=== PATIENT | male | born 1950 | race Caucasian/White ===

== ENCOUNTER 2018-10-11 22:20 | Emergency (ER) | payer OTHER, SELFPAY ==
--- NOTE | 2018-10-11 22:23 | ED.ABDPAIN ---
HPI - Abdominal Pain General Chief Complaint: Urogenital-Male Stated Complaint: ABD PAIN AND TOWARDS BACK Time Seen by Provider: 10/11/18 22:22 Source: patient Mode of arrival: ambulatory Limitations: no limitations History of Present Illness HPI narrative: Patient is a 68-year-old male here for evaluation of several hours of pain that is radiating from his right flank around to his abdomen. He states that he has had a kidney stone in the past but that was many years ago. He thought that potentially this could be a kidney stone again. No fevers. States that the symptoms were not worse with movement or palpation. Denies any urinary symptoms or change in bowel habits. Has not tried anything for the symptoms prior to arrival. Related Data Home Medications Medication Instructions Recorded Confirmed ASPIRIN (Aspirin Ec) 81 mg PO Q DAY #0 11/04/05 MULTIVITAMIN (Multivitamin 0 PO * [place] DOSE/FREQUENCY #0 02/05/07 -) RAMIPRIL (Altace) 10 mg PO #0 02/05/07 [FISH OIL] #0 02/05/07 rosuvastatin [Crestor] #0 10/17/16 Allergies Allergy/AdvReac Type Severity Reaction Status Date / Time No Known Drug Allergies Allergy Verified 10/11/18 22:26 Review of Systems Constitutional Denies fever(s) and Denies headache(s) ENT Ears, Nose, Mouth, and Throat: Denies headache(s) Cardiovascular Denies chest pain and Denies dyspnea Respiratory Denies cough and Denies dyspnea Gastrointestinal Gastrointestinal: Reports abdominal pain, Denies change in stool character, Reports nausea and Denies vomiting Genitourinary Denies hematuria, Denies genital pain and Denies dysuria Musculoskeletal Reports back pain, Denies myalgias and Denies arthralgias Integumentary/Breasts Denies lesions and Denies rash Neurologic Denies behavioral changes and Denies headache(s) Psychiatric Denies behavioral changes Hematologic/Lymphatic Denies easy bleeding and Denies easy bruising [facility] Medical History Kidney stones (Acute) Social History Smoking Status: Unknown if ever smoked Social History Smoking Status: Unknown if ever smoked Exam Initial Vital Signs Initial Vital Signs: Vital Signs Temperature 98.2 F 10/11/18 22:26 Pulse Rate 77 10/11/18 22:26 Respiratory Rate 16 10/11/18 22:26 Blood Pressure 162/91 H 10/11/18 22:26 Pulse Oximetry 97 10/11/18 22:26 Const General: cooperative, well developed and well groomed Orientation: alert, awake and oriented x3 HENMT Head: normal to inspection and normocephalic Chest Chest: normal inspection of the chest Breast inspection: normal inspection of the breasts Resp Effort & Inspection: normal respiratory effort Auscultation: clear to auscultation bilaterally Cardio Rate: regular rate Rhythm: regular rhythm Pulses: radial pulses present GI Inspection: non-distended Palpation: soft, No firm and No tender Back/Spine/Pelvis Back: No CVA tenderness Skin Lesions: no lesions Rashes: no rashes Neuro General: alert and awake Cognition: normal cognition Speech: speech normal Extrem General: normal to inspection and capillary refill normal Course Orders Ordered: ED Orders 10/11/18 22:53 Basic Metabolic Panel Stat Complete Blood Count AUTO DIFF Stat 10/11/18 22:57 CT kidney ureter bladder (KUB) Stat 10/12/18 00:35 XR chest 1V Stat Hepatic (Liver) Panel Stat Lipase Stat Troponin I Stat EKG-12 Lead Stat Discontinued Medications Hydrocodone Bitart/Acetaminophen (Vicodin Prepack) 1 bottle MISC SEEINSTR ONE Stop: 10/12/18 01:44 Lidocaine HCl 7.1 ml/ Sodium (Chloride) 57.1 mls @ 342.6 mls/hr IV NOW ONE Stop: 10/11/18 22:33 Last Infusion: 10/11/18 23:31 Dose: 0 mls/hr Admin: 10/11/18 22:59 Dose: 342.6 mls/hr Ketorolac Tromethamine (Toradol) 15 mg IV NOW ONE Stop: 10/11/18 22:33 Last Admin: 10/11/18 22:58 Dose: 15 mg Morphine Sulfate (Morphine) 4 mg IV NOW ONE Stop: 10/12/18 00:35 Last Admin: 10/12/18 00:55 Dose: 4 mg Ondansetron HCl (Zofran Odt Prepack) 1 bottle MISC SEEINSTR ONE Stop: 10/12/18 01:44 Vital Signs - 8 hr 10/11/18 22:26 10/12/18 00:26 Temperature 98.2 F Pulse Rate 77 61 Respiratory Rate 16 16 Blood Pressure 162/91 H Blood Pressure [Left Arm] 139/86 Pulse Oximetry 97 98 MDM - Abdominal Pain Lab Data Attestation: I reviewed the patient's lab results. Result diagrams: 10/11/18 22:53 10/11/18 22:53 Lab Results 10/11/18 10/11/18 10/12/18 Range/Units 22:53 22:53 00:35 WBC 6.1 (4.5-11.0) X10^3/uL RBC 4.64 (4.5-5.9) X10^6/uL Hgb 14.9 (13.5-17.5) g/dL Hct 41.9 (41-53) % MCV 90.3 (80-100) fL MCH 32.0 (26-34) PG MCHC 35.4 (30-36) % RDW 12.9 (11.6-14.8) % Plt Count 205 (150-400) X10^3/uL Neut % (Auto) 38.5 L (50-75) % Lymph % (Auto) 36.9 (25-40) % [place] % (Auto) 17.9 H (3-14) % Eos % (Auto) 5.2 H (2-4) % Baso % (Auto) 1.5 (0-2) % Neut # (Auto) 2400 (7687-2204) /uL Lymph # (Auto) 2300 (3609-5325) /uL [place] # (Auto) 1100 H (0-900) /uL Eos # (Auto) 300 (0-450) /uL Baso # (Auto) 100 (0-100) /uL Sodium 134 L (137-145) mmol/L Potassium 4.2 (3.4-5.1) mmol/L Chloride 98 (98-107) mmol/L Carbon Dioxide 27 (22-32) mmol/L BUN 18 (9-20) mg/dL Creatinine 1.00 (0.66-1.25) mg/dL Estimated GFR > 60.0 (>60) mL/min BUN/Creatinine Ratio 18.0 (6-22) Glucose 110 (80-110) mg/dL Calcium 9.5 (8.4-10.2) mg/dL Total Bilirubin (0.2-1.3) mg/dL Conjugated Bilirubin (0.0-0.3) md/dL Unconjugated Bilirubin (0.0-1.1) mg/dL AST (17-59) IU/L ALT (21-72) IU/L Alkaline Phosphatase (38-126) U/L Troponin I < 0.012 (0.01-0.034) ng/mL Total Protein (6.3-8.2) g/dL Albumin (3.5-5.0) g/dL Globulin (1.7-4.1) g/dL Albumin/Globulin Ratio (1.0-2.8) Lipase (23-300) U/L 10/12/18 Range/Units 00:35 WBC (4.5-11.0) X10^3/uL RBC (4.5-5.9) X10^6/uL Hgb (13.5-17.5) g/dL Hct (41-53) % MCV (80-100) fL MCH (26-34) PG MCHC (30-36) % RDW (11.6-14.8) % Plt Count (150-400) X10^3/uL Neut % (Auto) (50-75) % Lymph % (Auto) (25-40) % [place] % (Auto) (3-14) % Eos % (Auto) (2-4) % Baso % (Auto) (0-2) % Neut # (Auto) (7433-3906) /uL Lymph # (Auto) (1282-7272) /uL [place] # (Auto) (0-900) /uL Eos # (Auto) (0-450) /uL Baso # (Auto) (0-100) /uL Sodium (137-145) mmol/L Potassium (3.4-5.1) mmol/L Chloride (98-107) mmol/L Carbon Dioxide (22-32) mmol/L BUN (9-20) mg/dL Creatinine (0.66-1.25) mg/dL Estimated GFR (>60) mL/min BUN/Creatinine Ratio (6-22) Glucose (80-110) mg/dL Calcium (8.4-10.2) mg/dL Total Bilirubin 0.6 (0.2-1.3) mg/dL Conjugated Bilirubin 0.0 (0.0-0.3) md/dL Unconjugated Bilirubin 0.4 (0.0-1.1) mg/dL AST 26 (17-59) IU/L ALT 26 (21-72) IU/L Alkaline Phosphatase 34 L (38-126) U/L Troponin I (0.01-0.034) ng/mL Total Protein 6.9 (6.3-8.2) g/dL Albumin 4.2 (3.5-5.0) g/dL Globulin 2.7 (1.7-4.1) g/dL Albumin/Globulin Ratio 1.6 (1.0-2.8) Lipase 65 (23-300) U/L Point of care testing: Urine Dip Bedside Urine Glucose Negative Bedside Urine Bilirubin - Negative Bedside Urine Ketone - Negative Urine Specific [place] 1.015 Bedside Urine Occult Blood - Negative Bedside Urine pH 6.0 Bedside Urine Protein - Negative Bedside Urine Urobilinogen - Negative Bedside Urine Nitrite - Negative Bedside Urine Leukocytes - Negative Esterase Imaging Data CT scan - abdomen: Radiologist's impression: Preliminary read by [facility] No acute disease in the abdomen/pelvis No evidence of bowel obstruction or free air. Normal appendix No renal calculi or hydronephrosis bilaterally Chest x-ray: Radiologist's impression: Preliminary read by [facility] Scattered atelectatic/fibrotic change bilaterally. No focal infiltrate or pleural effusion ECG Data Attestation: I personally reviewed and interpreted this ECG as follows: Prior ECG tracings: not available for review Interpretation: Sinus rhythm Ventricular rate is 65 Normal axis Normal QRS Normal QTC No ST T wave changes MDM Narrative Medical decision making narrative: Initial presentation the patient was concern for kidney stone. He stated that he has had a kidney stone in the past and this felt very similar to that. His urine had no blood in it. There is no signs of infection. The CT scan without contrast showed no signs of a kidney stone and no other intra-abdominal pathology. His initial dose of medications did help his symptoms to a point but then they returned. He did describe a ?bloating? sensation in his abdomen. He stated that when his was rubbing his back he did belch a couple times in this potentially helped his symptoms somewhat. Given the lack of definitive findings on the initial presumed diagnosis other labs were ordered. His chest x-ray was unremarkable. His troponin was negative. His EKG was unremarkable. His lipase is unremarkable. Liver function tests are unremarkable. I have low suspicion for pancreatitis and gallbladder etiology. I also have low suspicion for ACS given his presenting symptoms and his EKG. His symptoms are not consistent with thoracic aortic dissection. The CT scan despite the lack of contrast stated that there were no dilations in his abdominal aorta. Had a discussion with the patient regarding his symptoms. He was informed the lack of definitive diagnosis. He expressed understanding of this. Prior to discharge I did go back in and informed the patient that another test we could potentially do a be a CT scan with contrast to evaluate for potential renal artery issues versus mesenteric issues. He does have a fairly benign abdominal exam and I feel that mesenteric ischemia is unlikely given his clinical presentation. After this discussion the patient opted not to have another CT scan on this visit however if the patient returns with continued symptoms or worsening symptoms I would recommend CT scan with contrast for further evaluation of this. Patient expressed understanding and agreement with the above plan. Will send home with symptom treatment. He will contact his primary provider for follow-up. He expressed understanding agreement plan. Discharge Plan Departure Patient Disposition: Home Clinical Impression: Abdominal pain Qualifiers: Abdominal location: upper abdomen, unspecified Qualified Code(s): R10.10 - Upper abdominal pain, unspecified Back pain Qualifiers: Back pain location: thoracic back pain Chronicity: unspecified Back pain laterality: unspecified Qualified Code(s): M54.6 - Pain in thoracic spine Instructions: DI for Abdominal Pain-Adult Activity Restrictions/Additional Instructions: You can take the medications as directed. Continue the rest of your medications as directed. If your symptoms worsen or you develop new symptoms or fevers please return to the emergency department for further evaluation. Contact your primary care provider to discuss follow-up and potential referral to see a GI specialist. Prescriptions: No Action ASPIRIN (Aspirin Ec) 81 mg PO Q DAY Qty: 0 RF: 0 RAMIPRIL (Altace) 10 mg PO Qty: 0 RF: 0 [FISH OIL] Qty: 0 RF: 0 MULTIVITAMIN (Multivitamin -) PO * DOSE/FREQUENCY Qty: 0 RF: 0 rosuvastatin [Crestor] 10 MG tablet Qty: 0 RF: 0 Referrals: Ari Correa MD [Primary Care Provider] -
[2018-10-11 22:26] VITALS: BP 162/91; PULSE 77; RESP 16; TEMP 36.8; O2SAT 97; BMI 28.5
--- NOTE | 2018-10-11 22:57 | DI.CT.S_ITS ---
PROCEDURE: CT KIDNEY URETER BLADDER (KUB) INDICATIONS: Right-sided flank pain concern for stone TECHNIQUE: Noncontrast 5 mm thick sections acquired from the diaphragms to the symphysis. 5 mm thick coronal and sagittal reformats were then performed. For radiation dose reduction, the following was used: automated exposure control, adjustment of mA and/or kV according to patient size. COMPARISON: None. FINDINGS: Image quality: Excellent. Lung bases: Lung bases are clear. Heart size is normal. Urinary system: Both kidneys are normal in size. No kidney stones. No hydronephrosis or perinephric fat stranding. Both ureters appear non-dilated throughout their expected courses. Mild wall thickening of the urinary bladder is present, which may be exaggerated by incomplete distention. No bladder calculi are evident. The prostate is mildly enlarged and noted to be moderately heterogeneous, containing coarse calcifications. The prostate gland measures at least 5.0 x 4.8 cm. Other solid organs: The liver is normal in size. The gallbladder is not dilated or inflamed. No intrahepatic or extrahepatic biliary dilatation is evident. Heterogeneity of the spleen is present without a definite lesion appreciated. The pancreas and adrenals are within normal limits. Peritoneum and bowel: There is a small hiatal hernia. The stomach is otherwise grossly unremarkable. The duodenum and remainder of the small bowel loops are nondilated. Moderate residual stool is seen within the proximal colon. Areas of distal colonic diverticulosis are identified without surrounding inflammation to suggest diverticulitis. The appendix is not clearly seen. Nodes and vessels: No retroperitoneal or mesenteric adenopathy by size criteria. Aorta and inferior vena cava are normal in caliber. Aortic and iliac artery atherosclerosis is present. Other pelvic soft tissues: No free pelvic fluid. There is a small to moderate-sized fat containing right inguinal hernia. There may be postoperative changes of the left inguinal region. No loculated fluid collections or pelvic adenopathy is evident. Prominent vessels are identified adjacent to the prostate gland. Bones: No suspicious bony lesions. No vertebral body compression fractures. Mild to moderate degenerative changes of the imaged spine and pelvic joints are present. IMPRESSION: 1. No nephroureterolithiasis or hydronephrosis. 2. Mild prominence of the wall of the urinary bladder probably is related to incomplete distention. Please correlate clinically to exclude cystitis. 3. Mildly enlarged prostate. 4. No bowel obstruction. Probable constipation. 5. Colonic diverticulosis without diverticulitis. 6. Small hiatal hernia. 7. Small to moderate-sized fat containing right inguinal hernia. Note: The preliminary [facility] report and the final report are concordant. Dictated by: Mervin Sol M.D. on 10/12/2018 at 6:55 Approved by: Mervin Sol M.D. on 10/12/2018 at 7:00
--- NOTE | 2018-10-11 22:57 | PC.NURSE ---
Patient reports sudden onset of Flank pain and upper abd pain. patient very restless, reports some nausea. States feels similar but more intense than last kidney stones. Denies fevers or chills.
[2018-10-11] MEDS: KETOROLAC 60 MG/2 ML VIAL 15 MG IV (22:58)
[2018-10-11] MEDS: LIDOCAINE 2% 7.1 ML in SODIUM CHLORIDE 0.9% 50 ML 342.6 ML IV (22:59)
[2018-10-11 23:02] LABS: Add Manual Diff / Slide Review NO; Basophils Absolute Auto 100 /uL (0-100); Basophils Percent Auto 1.5 % (0-2); Eosinophils Absolute Auto 300 /uL (0-450); Eosinophils Percent Auto 5.2 % (2-4); Hematocrit 41.9 % (41-53); Hemoglobin 14.9 g/dL (13.5-17.5); Lymphocytes Absolute Auto 2300 /uL (1100-4500); Lymphocytes Percent Auto 36.9 % (25-40); Mean Corpuscular HGB Conc 35.4 % (30-36); Mean Corpuscular Volume 90.3 fL (80-100); Monocytes Absolute Auto 1100 /uL (0-900); Monocytes Percent Auto 17.9 % (3-14); Neutrophils Absolute Auto 2400 /uL (1500-7000); Neutrophils Percent Auto 38.5 % (50-75); Platelet Count 205 X10^3/uL (150-400); Red Blood Cell Count 4.64 X10^6/uL (4.5-5.9); Red Cell Distribution Width 12.9 % (11.6-14.8); White Blood Cell Count 6.1 X10^3/uL (4.5-11.0)
[2018-10-11 23:11] LABS: Blood Urea Nitrogen 18 mg/dL (9-20); Calcium 9.5 mg/dL (8.4-10.2); Carbon Dioxide 27 mmol/L (22-32); Chloride 98 mmol/L (98-107); Estimated Glomerular Filt Rate > 60.0 mL/min (>60); Glucose 110 mg/dL (80-110); HEMOLYSIS 21 (0-50); Potassium 4.2 mmol/L (3.4-5.1); Sodium 134 mmol/L (137-145)
[2018-10-12 00:26] VITALS: BP 139/86; PULSE 61; RESP 16; O2SAT 98
--- NOTE | 2018-10-12 00:35 | DI.RAD.S_ITS ---
PROCEDURE: XR CHEST 1V INDICATIONS: Upper abdominal pain TECHNIQUE: One view of the chest was acquired. COMPARISON: [facility], , CHEST 1 VIEW, 02/05/2007, 7:11. FINDINGS: Surgical changes and devices: None. Lungs and pleura: Prominent interstitial markings are identified within the perihilar regions. The pulmonary vascular markings are mildly increased. No effusion or pneumothorax is evident. Mediastinum: Mediastinal contours appear normal. Heart size is prominent. Bones and chest wall: No suspicious bony lesions. Overlying soft tissues appear unremarkable. IMPRESSION: Cardiomegaly and moderate vascular congestion is concerning for developing pulmonary edema. Atypical pneumonia is felt to be unlikely. Please correlate clinically. Dictated by: Mervin Sol M.D. on 10/12/2018 at 6:40 Approved by: Mervin Sol M.D. on 10/12/2018 at 6:41
[2018-10-12] MEDS: MORPHINE 4 MG/ML INJ IV (00:55)
[2018-10-12 01:11] LABS: Alanine Aminotransferase 26 IU/L (21-72); Albumin 4.2 g/dL (3.5-5.0); Albumin Globulin Ratio 1.6 (1.0-2.8); Alkaline Phosphatase 34 U/L (38-126); Aspartate Aminotransferase 26 IU/L (17-59); Bilirubin Total 0.6 mg/dL (0.2-1.3); Bilirubin Unconjugated 0.4 mg/dL (0.0-1.1); Globulin 2.7 g/dL (1.7-4.1); HEMOLYSIS 27 (0-50); Lipase 65 U/L (23-300); Total Protein 6.9 g/dL (6.3-8.2)
[2018-10-12 01:23] LABS: Troponin I < 0.012 ng/mL (0.01-0.034)
[2018-10-12] MEDS: ONDANSETRON 4 MG ODT PREPACK 1 BOTTLE MISC (01:59)
[2018-10-12] MEDS: HYDROCODONE/ACET 5/325 PREPACK 1 BOTTLE MISC (01:59)
[2018-10-12 02:04] VITALS: BP 141/67; PULSE 70; RESP 21; TEMP 36.7; O2SAT 96
== END 2018-10-12 02:04 | disposition home or self-care (01) ==
PROVIDERS: Emergency Provider Emergency Medicine; PCP Internal Medicine
DX: R10.10 Upper abdominal pain, unspecified (principal); M54.6 Pain in thoracic spine
CPT/HCPCS: 36591; 71045; 74176; 80048; 80076; 81003; 83690; 84484; 85025; 93005; 96365; 96375; 99283; 99285; J1885; J2270

== ENCOUNTER 2018-10-17 11:48 | Inpatient (IN) | payer OTHER, SELFPAY ==
[2018-10-17] VITALS (29 sets, daily range): BP systolic 68–114; BP diastolic 38–80; PULSE 75–96; RESP 14–32; TEMP 36.4–37.1; O2SAT 92–98; BMI 28.5; BMI 29.4
--- NOTE | 2018-10-17 12:06 | DI.RAD.S_ITS ---
PROCEDURE: XR CHEST 1V INDICATIONS: chest pain, hypotension TECHNIQUE: One view of the chest was acquired. COMPARISON: [facility], CR, XR CHEST 1V, 10/12/2018, 0:39. CT thorax 10/24/2016. FINDINGS: Surgical changes and devices: None. Lungs and pleura: Low lung volumes. Mild bibasilar predominant hazy opacity. No pleural effusions or pneumothorax. Mediastinum: Mediastinal contours appear unchanged. Heart size appears unchanged. Bones and chest wall: No suspicious bony lesions. Overlying soft tissues appear unremarkable. IMPRESSION: Low lung volumes and mild bibasilar hazy opacity most compatible with atelectasis. Dictated by: Alan Pulido M.D. on 10/17/2018 at 12:19 Approved by: Alan Pulido M.D. on 10/17/2018 at 12:21
--- NOTE | 2018-10-17 12:10 | ED_ITS ---
HPI - Abdominal Pain General Chief Complaint: Chest Pain Stated Complaint: abd pain and syncope Time Seen by Provider: 10/17/18 11:50 Source: patient, family and EMS Mode of arrival: EMS Limitations: no limitations History of Present Illness HPI narrative: Patient comes emergency department complaining of upper abdo guillermina/lower chest pain and a syncopal episode today. Patient states that his pain actually started about 6 days ago, and was located in his mid back. At that time, patient was seen in the emergency department and worked up with labs, CT of the abdomen and pelvis without contrast, and chest x-ray. His workup at that time was negative, and he was discharged home. Three days later, patient was seen in his primary care physician's office, with continuing pain, and no further interventions were undertaken at that time. The patient return to Dr. Correa tellanson office today with increased pain, and while being interviewed by Dr. Correa, had a 2nd syncopal episode. When the medics arrived, they found the patient's blood pressure to be in the 70s systolic. Patient remained hypotensive throughout transport, though blood pressure did improve to 80s to 90s systolic. Medics started an IV and have given the patient 200 cc of fluid so far. The patient denies any dizziness lying in the bed. He denies dizziness with sitting up currently. The patient and deny any new medications or changes in medication doses. Patient states that he has continued to have upper abdominal pain, and now, the pain is severe. He states that his heart from to take a deep breath, secondary to the pain. He denies any nausea or vomiting. No fevers. No dysuria or hematuria. No diarrhea. No blood in his stool. Patient has no history of ulcers that he knows of. He has not had episodes of pain in the upper abdomen leading up to the last week. CT scan did show the patient's abdominal aorta to be of normal caliber. Patient states he has never had pain like this before. He states that he has no heart problems that he knows of. He does have a history of hypertension, and is on medication for hype rlipidemia, as well. Related Data Home Medications Medication Instructions Recorded Confirmed ramipril 10 mg PO DAILY #0 02/05/07 10/17/18 rosuvastatin [Crestor] 10 mg PO DAILY #0 10/17/16 10/17/18 aspirin 162.5 mg PO DAILY 10/17/18 10/17/18 carvedilol 25 mg PO BID 10/17/18 10/17/18 coenzyme Q10 [CoQ-10] 100 mg PO DAILY 10/17/18 10/17/18 hydrochlorothiazide 25 mg PO DAILY 10/17/18 10/17/18 lorazepam 0.5 mg PO TID PRN 10/17/18 10/17/18 niacin 250 mg PO BID 10/17/18 10/17/18 Allergies Allergy/AdvReac Type Severity Reaction Status Date / Time No Known Drug Allergies Allergy Verified 10/11/18 22:26 Review of Systems Review of Systems ROS Unobtainable: All systems reviewed & are unremarkable except as noted in HPI and below Constitutional Constitutional: Denies chills, Denies fatigue, Denies fever(s), Denies frequent falls, Denies lethargy and Denies weakness Eyes Eyes: Denies change in vision, Denies eye discharge, Denies irritation and Denies loss of vision ENT Ears, Nose, Mouth, and Throat: Denies change in voice, Denies dizziness, Denies neck pain, Denies sore throat and Denies throat swelling Cardiovascular Cardiovascular: Reports chest pain, Reports syncope, Denies irregular heart rhythm, Denies lightheadedness, Denies palpitations, Denies dyspnea, Denies dyspnea on exertion and Denies orthopnea Respiratory Respiratory: Denies cough, Denies dyspnea, Denies dyspnea on exertion and Denies wheezing Gastrointestinal Gastrointestinal: Reports abdominal pain, Denies change in bowel habits, Denies diarrhea, Denies nausea and Denies vomiting Genitourinary Genitourinary: Denies hematuria, Denies flank pain, Denies urinary incontinence and Denies urinary urgency Musculoskeletal Musculoskeletal: Denies back pain, Denies muscle weakness, Denies neck pain, Denies numbness and Denies tingling Integumentary/Breasts Skin/Breast: Denies pruritus, Denies erythema, Denies rash and Denies wounds Neurologic Neurologic: Denies behavioral changes, Denies confusion, Denies dizziness, Reports syncope, Denies frequent falls, Denies loss of vision, Denies numbness, Denies tingling and Denies weakness Psychiatric Psychiatric: Denies anxiety, Denies behavioral changes, Denies confusion, Denies depression, Denies homicidal ideation and Denies suicidal ideation Endocrine Endocrine: Denies fatigue, Denies flushing and Denies palpitations Hematologic/Lymphatic Hematologic/Lymphatic: Denies easy bruising Allergic/Immunologic Allergic/Immunologic: Denies urticaria, Denies throat swelling and Denies wheezing [facility] Medical History HTN (hypertension) (Acute) Hyperlipidemia (Acute) Kidney stones (Acute) Surgical History No pertinent past surgical history (Acute) Social History Smoking Status: Never smoker Social History household members: spouse Smoking Status: Never smoker alcohol intake: current Exam Narrative Exam Narrative: Patient appears moderately uncomfortable. He is alert and able to converse, but when not conversing becomes drowsy. Initial Vital Signs Initial Vital Signs: Vital Signs Temperature 97.6 F 10/17/18 12:05 Pulse Rate 75 10/17/18 12:05 Respiratory Rate 32 H 10/17/18 12:05 Blood Pressure 74/46 L 10/17/18 12:05 Pulse Oximetry 94 10/17/18 12:05 Const General: cooperative and well developed Nutritional Appearance: well nourished Orientation: alert, awake, oriented x3 and not confused [facility] Head: normocephalic and atraumatic Ears: external ears normal Nose: external nose normal and No nasal discharge Face and sinus: face symmetric and No dry mucous membranes Mouth: oral mucosae normal and moist mucous membranes Teeth and gingiva: dentition normal Eyes General: appearance normal, both eyes and all related structures Eyelids: eyelids normal Conjunctivae: conjunctivae normal Sclera: sclerae normal Pupils: PERRL EOM: EOM intact bilaterally Neck Neck: normal visual inspection, trachea midline, No lymphadenopathy, No midline deformity and No JVD Lymphatic: No lymphedema Chest Chest: normal inspection of the chest Resp Effort & Inspection: normal respiratory effort, able to speak in complete sentences, no respiratory distress and no use of accessory muscles Auscultation: clear to auscultation bilaterally, no rales, no rhonchi and no wheezes Cardio Rate: regular rate Rhythm: regular rhythm Heart Sounds: no click, no gallops, no murmurs and no rubs Pulses: normal peripheral pulses GI Inspection: non-distended Palpation: soft, no hepatosplenomegaly, No guarding, No pulsatile mass and tender (Moderate, epigastric.) Auscultation: normal bowel sounds Back/Spine/Pelvis Back: No CVA tenderness Cervical Spine: cervical ROM normal and No pain with cervical ROM Thoracic/Lumbar Spine: thoracic and lumbar spine normal to inspection Skin General: no rashes or lesions noted, No jaundice and No petechiae Neuro General: alert, oriented x3, gait normal and no focal motor deficits Speech: speech normal Extrem General: full ROM, no clubbing, cyanosis or edema, no pedal edema and no calf tenderness Psych Appearance: well kempt Mental Status: mental status grossly normal Attitude: cooperative Thought Content: normal and suicidality Judgment: judgment good Course Course Course Narrative: Patient was evaluated by myself immediately upon arrival in the emergency department. The patient was significantly hypotensive, and dropped to 66 over 40s while I was examining him. The patient already had 1 large bore IV through which normal saline was running wide open, and I asked the nurse to start another IV right away. This is done, and a 2nd L fluid was hung through that IV. The patient was worked up with labs, including CBC, CMP, lipase, cardiac panel, blood cultures, lactic acid level, type and screen, and urinalysis. Patient was found have a sodium of 118, down from normal last week. His white blood cell count was also now 16, which was a significant elevation compared to his normal level on his last visit. Patient's hemoglobin was found to be 1.5 g lower than on his previous levels. Kidney function had diminished from a GFR of greater than 60 to a GFR of 43. Patient was given extensive IV fluid resuscitation in the emergency department. He was also worked up with [employer] [facility] imaging. Patient was worked up with CT angio of the chest, abdomen, and pelvis, which revealed a grossly distended gallbladder with what appeared to be gallbladder wall thickening, consistent with cholecystitis. No PE or aortic pathology were noted. The patient was then evaluated with an ultrasound of the right upper quadrant, which showed a thickened gallbladder wall and 9 mm, and a common bile duct at 1 cm. I spoke with the surgeon on-call, Dr. Nagel, who agreed to consult on the patient but requested that the patient be admitted to hospitalist service. I spoke with Dr. Trevino, who agreed to admit the patient to her service. The patient had remained significantly hypotensive throughout his stay in the emergency department, but did not demonstrate a decline from his initial pressures. The patient's systolic blood pressures ranged between the 80s and 90s systolic for most of his stay in the ED, although initially, he did have some values in the 60s to 70s. The patient was doing better in terms of his blood pressure after nearly 3 L of IV fluids, although he still had not produced urine. His systolics were now ranging into the low 100s, which was a definite improvement. The patient was not found to have a distended bladder on imaging. He continued to receive IV fluid boluses until he was transferred to the ICU. His pain was somewhat improved, although he was not able to receive any analgesia, secondary to his ongoing hypotension. Orders Ordered: ED Orders 10/17/18 11:45 Complete Blood Count AUTO DIFF Stat Comprehensive Metabolic Panel Stat Lipase Stat Troponin & CK Cardiac Panel Stat 10/17/18 11:48 EKG-12 Lead Routine 10/17/18 12:00 Blood Culture Stat 10/17/18 12:03 Urinalysis and Microscopic Stat 10/17/18 12:06 XR chest 1V Stat 10/17/18 12:24 CT angio chest abdomen pelvis Stat 10/17/18 12:30 Complete Blood Count AUTO DIFF Stat Comprehensive Metabolic Panel Stat Lactate (Lactic Acid) Stat Magnesium Urgent Procalcitonin Stat Type and Screen Stat 10/17/18 13:53 US abdomen limited Stat 10/17/18 15:56 Education, smoking cessation ONGOING 10/18/18 05:00 Complete Blood Count AUTO DIFF Routine Lipid Panel Routine Acetaminophen (Tylenol) 650 mg PO Q6HR PRN PRN Reason: As Needed for Fever/Mild Pain Bisacodyl (Dulcolax) 10 mg MT DAILY PRN PRN Reason: Constipation Calcium Carbonate (Tums) 1,000 mg PO Q4HR PRN PRN Reason: Dyspepsia Heparin Sodium (Porcine) (Heparin) 5,000 unit SUBCUT BID SARAH Sodium Chloride (Normal Saline 0.9%) 1,000 mls @ 150 mls/hr IV CONT SARAH Last Admin: 10/17/18 18:05 Dose: 150 mls/hr Documented by: KPTONIEIS Morphine Sulfate (Morphine) 2 mg IV Q4HR PRN PRN Reason: Pain, Moderate (4-6) Last Admin: 10/17/18 18:04 Dose: 2 mg Documented by: DONNA Ondansetron HCl (Zofran) 4 mg IV Q6HR PRN PRN Reason: Nausea And Vomiting Last Admin: 10/17/18 18:07 Dose: 4 mg Documented by: DONNA Discontinued Medications Sodium Chloride (Normal Saline 0.9%) 1,000 mls @ 2,000 mls/hr IV BOLUS ONE Stop: 10/17/18 12:31 Last Infusion: 10/17/18 13:55 Dose: 0 mls/hr Documented by: Admin: 10/17/18 12:19 Dose: 2,000 mls/hr Documented by: CATALINO Sodium Chloride (Normal Saline 0.9%) 1,000 mls @ 1,000 mls/hr IV BOLUS ONE Stop: 10/17/18 14:25 Last Infusion: 10/17/18 16:01 Dose: 0 mls/hr Documented by: Admin: 10/17/18 14:53 Dose: 1,000 mls/hr Documented by: FREDDY Piperacillin/Tazobactam/Dextrose (Zosyn) 3.375 gm in 50 mls @ 100 mls/hr IV NOW ONE Stop: 10/17/18 14:25 Last Infusion: 10/17/18 15:05 Dose: 0 mls/hr Documented by: Admin: 10/17/18 14:29 Dose: 100 mls/hr Documented by: CATALINO Vital Signs Vital signs: Vital Signs - 8 hr 10/17/18 12:05 10/17/18 12:10 10/17/18 12:15 Temperature 97.6 F Pulse Rate 75 75 75 Respiratory Rate 32 H 25 H 25 H Blood Pressure 74/46 L Blood Pressure [Right Arm] 68/51 L 89/51 L Pulse Oximetry 94 97 97 10/17/18 12:20 10/17/18 12:25 10/17/18 12:33 Temperature Pulse Rate 76 81 81 Respiratory Rate 31 H 26 H 25 H Blood Pressure Blood Pressure [Right Arm] 94/59 L 81/47 L 92/50 L Pulse Oximetry 96 96 98 10/17/18 12:50 10/17/18 12:55 10/17/18 13:00 Temperature Pulse Rate 89 87 84 Respiratory Rate 26 H 24 28 H Blood Pressure Blood Pressure [Right Arm] 108/42 L 81/43 L 93/59 L Pulse Oximetry 95 94 95 10/17/18 13:05 10/17/18 13:10 10/17/18 13:15 Temperature Pulse Rate 84 88 87 Respiratory Rate 24 24 23 Blood Pressure Blood Pressure [Right Arm] 77/45 L 84/62 L 93/59 L Pulse Oximetry 97 95 96 10/17/18 13:20 10/17/18 13:25 10/17/18 13:30 Temperature Pulse Rate 94 H 87 84 Respiratory Rate 25 H 24 26 H Blood Pressure Blood Pressure [Right Arm] 97/73 81/43 L 91/50 L Pulse Oximetry 95 94 96 10/17/18 13:35 10/17/18 13:40 10/17/18 13:46 Temperature Pulse Rate 85 82 81 Respiratory Rate 27 H 24 22 Blood Pressure Blood Pressure [Right Arm] 91/53 L 82/50 L 87/60 L Pulse Oximetry 96 97 97 10/17/18 13:50 10/17/18 13:56 10/17/18 14:00 Temperature Pulse Rate 96 H 80 83 Respiratory Rate 23 22 22 Blood Pressure Blood Pressure [Right Arm] 94/56 L 93/52 L 97/80 Pulse Oximetry 97 97 97 10/17/18 14:22 10/17/18 15:03 Temperature Pulse Rate 87 81 Respiratory Rate 23 25 H Blood Pressure Blood Pressure [Right Arm] 93/59 L 98/61 Pulse Oximetry 95 97 MDM - Abdominal Pain Medical Records Attestation: I reviewed the patient's medical records. Lab Data Attestation: I reviewed the patient's lab results. Result diagrams: 10/17/18 12:30 10/17/18 12:30 Labs: Lab Results 10/17/18 10/17/18 10/17/18 Range/Units 11:45 11:45 12:30 WBC 16.2 H (4.5-11.0) X10^3/uL RBC 4.24 L (4.5-5.9) X10^6/uL Hgb 13.4 L (13.5-17.5) g/dL Hct 38.1 L (41-53) % MCV 89.8 (80-100) fL MCH 31.7 (26-34) PG MCHC 35.3 (30-36) % RDW 13.0 (11.6-14.8) % Plt Count 205 (150-400) X10^3/uL Neut % (Auto) 87.0 H (50-75) % Lymph % (Auto) 5.7 L (25-40) % Emanuel % (Auto) 6.5 (3-14) % Eos % (Auto) 0.6 L (2-4) % Baso % (Auto) 0.2 (0-2) % Neut # (Auto) 61250 H (1304-2241) /uL Lymph # (Auto) 900 L (4198-1540) /uL Emanuel # (Auto) 1100 H (0-900) /uL Eos # (Auto) 100 (0-450) /uL Baso # (Auto) 0 (0-100) /uL Total Counted Seg Neutrophils % (38-70) % Band Neutrophils % (3-7) % Lymphocytes % (Manual) (25-45) % Monocytes % (Manual) (2-11) % Eosinophils % (Manual) (2-4) % Metamyelocytes % (-0) % Neutrophils # (Manual) (6918-5957) /uL RBC Morphology Tear Drop Cells Earling Cells Sodium 120 L D (137-145) mmol/L Potassium 3.5 (3.4-5.1) mmol/L Chloride 77 L (98-107) mmol/L Carbon Dioxide 28 (22-32) mmol/L BUN 33 H (9-20) mg/dL Creatinine 1.60 H (0.66-1.25) mg/dL Estimated GFR 43.2 L (>60) mL/min BUN/Creatinine Ratio 20.6 (6-22) Glucose 117 H (80-110) mg/dL Lactate (0.7-2.1) mmol/L Calcium 8.3 L (8.4-10.2) mg/dL Magnesium (1.6-2.3) mg/dL Total Bilirubin 2.8 H (0.2-1.3) mg/dL AST 701 H (17-59) IU/L ALT 628 H (21-72) IU/L Alkaline Phosphatase 209 H D (38-126) U/L Total Creatine Kinase 41 L (55-170) U/L CK-MB (CK-2) TNP CK-MB (CK-2) Rel Index TNP Troponin I < 0.012 (0.01-0.034) ng/mL Total Protein 6.3 (6.3-8.2) g/dL Albumin 3.3 L (3.5-5.0) g/dL Globulin 3.0 (1.7-4.1) g/dL Albumin/Globulin Ratio 1.1 (1.0-2.8) Lipase 52306 H D (23-300) U/L Procalcitonin (<0.5) ng/mL Blood Type A Positive Antibody Screen Negative 10/17/18 10/17/18 10/17/18 Range/Units 12:30 12:30 12:30 WBC 14.5 H (4.5-11.0) X10^3/uL RBC 4.19 L (4.5-5.9) X10^6/uL Hgb 13.2 L (13.5-17.5) g/dL Hct 37.8 L (41-53) % MCV 90.1 (80-100) fL MCH 31.6 (26-34) PG MCHC 35.0 (30-36) % RDW 12.8 (11.6-14.8) % Plt Count 192 (150-400) X10^3/uL Neut % (Auto) Not Reportable (50-75) % Lymph % (Auto) Not Reportable (25-40) % Emanuel % (Auto) Not Reportable (3-14) % Eos % (Auto) Not Reportable (2-4) % Baso % (Auto) Not Reportable (0-2) % Neut # (Auto) (7569-0175) /uL Lymph # (Auto) Not Reportable (8671-1943) /uL Emanuel # (Auto) Not Reportable (0-900) /uL Eos # (Auto) (0-450) /uL Baso # (Auto) Not Reportable (0-100) /uL Total Counted 100 Seg Neutrophils % 76.0 H (38-70) % Band Neutrophils % 14.0 H (3-7) % Lymphocytes % (Manual) 3.0 L (25-45) % Monocytes % (Manual) 5.0 (2-11) % Eosinophils % (Manual) 1.0 L (2-4) % Metamyelocytes % 1.0 H (-0) % Neutrophils # (Manual) 86700 H (1736-8666) /uL RBC Morphology See below Tear Drop Cells 1+ H Ronald Cells 1+ H Sodium 118 L* (137-145) mmol/L Potassium 3.5 (3.4-5.1) mmol/L Chloride 81 L (98-107) mmol/L Carbon Dioxide 26 (22-32) mmol/L BUN 33 H (9-20) mg/dL Creatinine 1.60 H (0.66-1.25) mg/dL Estimated GFR 43.2 L (>60) mL/min BUN/Creatinine Ratio 20.6 (6-22) Glucose 114 H (80-110) mg/dL Lactate 1.3 (0.7-2.1) mmol/L Calcium 7.9 L (8.4-10.2) mg/dL Magnesium (1.6-2.3) mg/dL Total Bilirubin 3.0 H (0.2-1.3) mg/dL AST 661 H (17-59) IU/L ALT 602 H (21-72) IU/L Alkaline Phosphatase 205 H (38-126) U/L Total Creatine Kinase (55-170) U/L CK-MB (CK-2) CK-MB (CK-2) Rel Index Troponin I (0.01-0.034) ng/mL Total Protein 6.1 L (6.3-8.2) g/dL Albumin 3.2 L (3.5-5.0) g/dL Globulin 2.9 (1.7-4.1) g/dL Albumin/Globulin Ratio 1.1 (1.0-2.8) Lipase (23-300) U/L Procalcitonin (<0.5) ng/mL Blood Type Antibody Screen 10/17/18 10/17/18 Range/Units 12:30 12:30 WBC (4.5-11.0) X10^3/uL RBC (4.5-5.9) X10^6/uL Hgb (13.5-17.5) g/dL Hct (41-53) % MCV (80-100) fL MCH (26-34) PG MCHC (30-36) % RDW (11.6-14.8) % Plt Count (150-400) X10^3/uL Neut % (Auto) (50-75) % Lymph % (Auto) (25-40) % Emanuel % (Auto) (3-14) % Eos % (Auto) (2-4) % Baso % (Auto) (0-2) % Neut # (Auto) (1759-4418) /uL Lymph # (Auto) (9909-8569) /uL Emanuel # (Auto) (0-900) /uL Eos # (Auto) (0-450) /uL Baso # (Auto) (0-100) /uL Total Counted Seg Neutrophils % (38-70) % Band Neutrophils % (3-7) % Lymphocytes % (Manual) (25-45) % Monocytes % (Manual) (2-11) % Eosinophils % (Manual) (2-4) % Metamyelocytes % (-0) % Neutrophils # (Manual) (7692-9860) /uL RBC Morphology Tear Drop Cells Ronald Cells Sodium (137-145) mmol/L Potassium (3.4-5.1) mmol/L Chloride (98-107) mmol/L Carbon Dioxide (22-32) mmol/L BUN (9-20) mg/dL Creatinine (0.66-1.25) mg/dL Estimated GFR (>60) mL/min BUN/Creatinine Ratio (6-22) Glucose (80-110) mg/dL Lactate (0.7-2.1) mmol/L Calcium (8.4-10.2) mg/dL Magnesium 2.2 (1.6-2.3) mg/dL Total Bilirubin (0.2-1.3) mg/dL AST (17-59) IU/L ALT (21-72) IU/L Alkaline Phosphatase (38-126) U/L Total Creatine Kinase (55-170) U/L CK-MB (CK-2) CK-MB (CK-2) Rel Index Troponin I (0.01-0.034) ng/mL Total Protein (6.3-8.2) g/dL Albumin (3.5-5.0) g/dL Globulin (1.7-4.1) g/dL Albumin/Globulin Ratio (1.0-2.8) Lipase (23-300) U/L Procalcitonin 36.29 H (<0.5) ng/mL Blood Type Antibody Screen Imaging Data CT chest abdomen pelvis: Radiologist's impression: PROCEDURE: CT ANGIO CHEST ABDOMEN PELVIS INDICATIONS: abd and chest pain, hypotension TECHNIQUE: Precontrast 5 mm thick sections acquired from the lung apices to the iliac crests. After the administration of intravenous contrast, 2.5 mm thick sections again acquired from the lung apices to the iliac crests. Maximum intensity projection (MIP) oblique sagittal and coronal reformats were then acquired. For radiation dose reduction, the following was used: automated exposure control. COMPARISON: [facility], CT, CT KIDNEY URETER BLADDER (KUB), 10/11/2018, 22:59. FINDINGS: Image quality: Excellent. AORTA: There is no thoracic or abdominal aortic aneurysm. Maximum ascending thoracic aortic diameter is 3.5 cm. In maximum ascending thoracic aortic diameter is 2.8 cm. Maximum suprarenal abdominal aortic diameter is 2.3 cm. Maximum infrarenal abdominal aortic diameter is 1.9 cm. Mild atherosclerotic calcifications are noted in aortic arch and descending thoracic aorta. Moderate atherosclerotic calcifications are noted throughout the abdominal aorta. There is no aortic dissection. CHEST: Lungs and pleura: N there is trace amount of right pleural effusion. Dependent atelectasis in posterior aspect of bilateral lung davis are seen. No left-sided pleural effusion. No pneumothorax. Central and peripheral airways are patent and normal in caliber. Mediastinum: Heart size is mildly enlarged. No pericardial effusion. No mediastinal or hilar adenopathy by size criteria. Central pulmonary arteries are normal in size. No intraluminal filling defect is seen in pulmonary arteries. Esophagus is normal in caliber. There is a small hiatal hernias. Bones and chest wall: No axillary adenopathy by size criteria. Thyroid gland is within normal limits. No suspicious bony lesions. No vertebral body compression fractures. ABDOMEN: Vasculature: Celiac trunk and mesenteric arteries are patent. Renal arteries are also patent. Moderate amount of atherosclerotic calcifications are noted throughout [id number] amount of atherosclerotic calcifications are noted involving origins of the renal arteries and celiac axis with no hemodynamically significant stenosis. Bilateral common iliac arteries are patent. Bilateral femoral arteries are patent. Solid organs: Liver is normal in size and enhancement. Gallbladder is distended with suggestion of gallbladder wall thickening and edema. No calcified gallstone is seen.. Biliary system is non dilated. Pancreas enhances normally. Spleen is normal in size and enhancement. No adrenal nodules. Both kidneys are normal in size and enhancement, without hydronephrosis. Peritoneum and bowel: No free fluid or air. There is mild wall thickening inv olving duodenum and proximal jejunum, concerning for mild enteritis. No abnormal colonic wall thickening. No evidence of bowel obstruction. Nodes and vessels: No retroperitoneal or mesenteric adenopathy by size criteria. Inferior vena cava is normal in morphology. Miscellaneous: No ventral hernias. PELVIS: Genitourinary: Bladder wall thickness is normal. Enlarged prostate gland is seen with mild mass effect on fluoroscopy the urinary bladder. Miscellaneous: Bilateral fat containing inguinal hernia is again seen more prominent on the right side. No inguinal lymphadenopathy. Bones: No suspicious bony lesions. No vertebral body compression fractures. IMPRESSION: 1. No evidence of pulmonary emboli. 2. No aortic aneurysm or dissection. Mild to moderate amount of atherosclerotic calcifications throughout bowel no aorta. No hemodynamically significant stenos is are seen in bilateral iliac arteries and femoral arteries. No hemodynamically significant stenosis are noted in celiac axis, mesenteric arteries or renal arteries. 3. Trace amount of right pleural effusion. Bibasilar dependent atelectasis. 4. Distended gallbladder with suggestion of gallbladder wall thickening and edema concerning for cholecystitis, suggest clinical correlation. 5. Mild wall thickening involving duodenum and proximal portion of jejunum. Finding could represent infectious inflammatory enteritis. No bowel obstruction. No free fluid or free air. Dictated by: Mitch Hawley M.D. on 10/17/2018 at 13:16 Approved by: Mitch Hawley M.D. on 10/17/2018 at 13:38 US - abdomen: Radiologist's impression: PROCEDURE: US ABDOMEN LIMITED INDICATIONS: GB ABN ON CT TECHNIQUE: Real-time focused scanning was performed of the abdomen, with image documentation. COMPARISON: None. FINDINGS: Markedly thickened gallbladder wall is seen and measures up to 9.1 mm in thickness. There is sludge material versus polyp seen in gallbladder lumen. Positive sonographic Mckeon's sign is noted. There is no gross intrahepatic biliary ductal dilatation. Common bile that measures up to 9.8 mm in diameter. IMPRESSION: 1. Sludge material and possible small stones/polyp seen in gallbladder lumen. Gallbladder wall thickening and positive sonographic Mckeon's sign concerning for acute cholecystitis. 2. Mild prominence of common bile that measures up to 1 cm in diameter. No obvious choledocholithiasis. Dictated by: Mitch Hawley M.D. on 10/17/2018 at 14:49 Approved by: Mitch Hawley M.D. on 10/17/2018 at 14:50 Chest x-ray: Radiologist's impression: PROCEDURE: XR CHEST FOR PICC 1V INDICATIONS: Confirm PICC placement TECHNIQUE: One view of the chest was acquired. COMPARISON: [facility], , XR CHEST 1V, 10/17/2018, 12:05. FINDINGS: Surgical changes and devices: There is a right PICC, the tip of which is projected over the cavoatrial junction. Lungs and pleura: Lungs are clear. No pleural effusions or pneumothorax. Mediastinum: Mediastinal contours appear normal. Heart size is normal. Bones and chest wall: No suspicious bony lesions. Overlying soft tissues appear unremarkable. IMPRESSION: No acute cardiopulmonary findings. Dictated by: Roxann Dixon M.D. on 10/17/2018 at 17:41 Approved by: Roxann Dixon M.D. on 10/17/2018 at 17:41 ECG Data Attestation: I personally reviewed and interpreted this ECG as follows: (See below) Interpretation: Twelve lead EKG performed October 17, 2018 at 11:48 a.m., as follows: Regular ventricular rhythm with a rate of 77 beats per minute MT interval to 10 millisecond QRS duration 94 millisecond QTC interval 429 millisecond No ectopy No significant ST T wave changes Normal axis Interpretation: Normal sinus rhythm with first-degree AV block no signs of acute ischemia; abnormal EKG as interpreted by 80 mg. Critical Care Time Critical Care Time Critical Care Time: Yes Total Critical Care Time: 120 Attestation: Critical care time was necessary, due to high probability of imminent decline and . Critical care time is exclusive of separately billable procedures. Critical care time included: Interviewing and examining the patient, ordering and reviewing laboratory studies, ordering and reviewing imaging studies, evaluating cardiac output, evaluating oxygen saturation, evaluating the effects of treatment, discussion with consultants, discussion with family, re-examining the patient, and documentation. Discharge Plan Departure Patient Disposition: Admitted As Inpatient Clinical Impression: Acute cholecystitis, Acute hyponatremia Acute pancreatitis Qualifiers: Pancreatitis type: biliary Acute pancreatitis complication: no infection or necrosis Qualified Code(s): K85.10 - Biliary acute pancreatitis without necrosis or infection Discharge Date/Time: 10/17/18 16:55 Admit Date/Time: 10/17/18 16:26 Admit Provider: Candida Trevino
[2018-10-17 12:11] LABS: Add Manual Diff / Slide Review NO; Basophils Absolute Auto 0 /uL (0-100); Basophils Percent Auto 0.2 % (0-2); Eosinophils Absolute Auto 100 /uL (0-450); Eosinophils Percent Auto 0.6 % (2-4); Hematocrit 38.1 % (41-53); Hemoglobin 13.4 g/dL (13.5-17.5); Lymphocytes Absolute Auto 900 /uL (1100-4500); Lymphocytes Percent Auto 5.7 % (25-40); Mean Corpuscular HGB Conc 35.3 % (30-36); Mean Corpuscular Hemoglobin 31.7 PG (26-34); Mean Corpuscular Volume 89.8 fL (80-100); Monocytes Absolute Auto 1100 /uL (0-900); Monocytes Percent Auto 6.5 % (3-14); Neutrophils Absolute Auto 14100 /uL (1500-7000); Platelet Count 205 X10^3/uL (150-400); Red Blood Cell Count 4.24 X10^6/uL (4.5-5.9); White Blood Cell Count 16.2 X10^3/uL (4.5-11.0)
[2018-10-17 12:17] LABS: Alanine Aminotransferase 628 IU/L (21-72); Albumin 3.3 g/dL (3.5-5.0); Albumin Globulin Ratio 1.1 (1.0-2.8); Alkaline Phosphatase 209 U/L (38-126); Aspartate Aminotransferase 701 IU/L (17-59); BUN Creatinine Ratio 20.6 (6-22); Bilirubin Total 2.8 mg/dL (0.2-1.3); Blood Urea Nitrogen 33 mg/dL (9-20); Calcium 8.3 mg/dL (8.4-10.2); Carbon Dioxide 28 mmol/L (22-32); Chloride 77 mmol/L (98-107); Creatine Kinase 41 U/L (55-170); Estimated Glomerular Filt Rate 43.2 mL/min (>60); Glucose 117 mg/dL (80-110); HEMOLYSIS 18 (0-50); Potassium 3.5 mmol/L (3.4-5.1); Sodium 120 mmol/L (137-145); Total Protein 6.3 g/dL (6.3-8.2)
[2018-10-17] MEDS: SODIUM CHLORIDE 0.9% 1,000 ML 2000 ML IV (12:19)
--- NOTE | 2018-10-17 12:24 | DI.CT.S_ITS ---
PROCEDURE: CT ANGIO CHEST ABDOMEN PELVIS INDICATIONS: abd and chest pain, hypotension TECHNIQUE: Precontrast 5 mm thick sections acquired from the lung apices to the iliac crests. After the administration of intravenous contrast, 2.5 mm thick sections again acquired from the lung apices to the iliac crests. Maximum intensity projection (MIP) oblique sagittal and coronal reformats were then acquired. For radiation dose reduction, the following was used: automated exposure control. COMPARISON: [facility], CT, CT KIDNEY URETER BLADDER (KUB), 10/11/2018, 22:59. FINDINGS: Image quality: Excellent. AORTA: There is no thoracic or abdominal aortic aneurysm. Maximum ascending thoracic aortic diameter is 3.5 cm. In maximum ascending thoracic aortic diameter is 2.8 cm. Maximum suprarenal abdominal aortic diameter is 2.3 cm. Maximum infrarenal abdominal aortic diameter is 1.9 cm. Mild atherosclerotic calcifications are noted in aortic arch and descending thoracic aorta. Moderate atherosclerotic calcifications are noted throughout the abdominal aorta. There is no aortic dissection. CHEST: Lungs and pleura: N there is trace amount of right pleural effusion. Dependent atelectasis in posterior aspect of bilateral lung davis are seen. No left-sided pleural effusion. No pneumothorax. Central and peripheral airways are patent and normal in caliber. Mediastinum: Heart size is mildly enlarged. No pericardial effusion. No mediastinal or hilar adenopathy by size criteria. Central pulmonary arteries are normal in size. No intraluminal filling defect is seen in pulmonary arteries. Esophagus is normal in caliber. There is a small hiatal hernias. Bones and chest wall: No axillary adenopathy by size criteria. Thyroid gland is within normal limits. No suspicious bony lesions. No vertebral body compression fractures. ABDOMEN: Vasculature: Celiac trunk and mesenteric arteries are patent. Renal arteries are also patent. Moderate amount of atherosclerotic calcifications are noted throughout [id number] amount of atherosclerotic calcifications are noted involving origins of the renal arteries and celiac axis with no hemodynamically significant stenosis. Bilateral common iliac arteries are patent. Bilateral femoral arteries are patent. Solid organs: Liver is normal in size and enhancement. Gallbladder is distended with suggestion of gallbladder wall thickening and edema. No calcified gallstone is seen.. Biliary system is non dilated. Pancreas enhances normally. Spleen is normal in size and enhancement. No adrenal nodules. Both kidneys are normal in size and enhancement, without hydronephrosis. Peritoneum and bowel: No free fluid or air. There is mild wall thickening involving duodenum and proximal jejunum, concerning for mild enteritis. No abnormal colonic wall thickening. No evidence of bowel obstruction. Nodes and vessels: No retroperitoneal or mesenteric adenopathy by size criteria. Inferior vena cava is normal in morphology. Miscellaneous: No ventral hernias. PELVIS: Genitourinary: Bladder wall thickness is normal. Enlarged prostate gland is seen with mild mass effect on fluoroscopy the urinary bladder. Miscellaneous: Bilateral fat containing inguinal hernia is again seen more prominent on the right side. No inguinal lymphadenopathy. Bones: No suspicious bony lesions. No vertebral body compression fractures. IMPRESSION: 1. No evidence of pulmonary emboli. 2. No aortic aneurysm or dissection. Mild to moderate amount of atherosclerotic calcifications throughout bowel no aorta. No hemodynamically significant stenosis are seen in bilateral iliac arteries and femoral arteries. No hemodynamically significant stenosis are noted in celiac axis, mesenteric arteries or renal arteries. 3. Trace amount of right pleural effusion. Bibasilar dependent atelectasis. 4. Distended gallbladder with suggestion of gallbladder wall thickening and edema concerning for cholecystitis, suggest clinical correlation. 5. Mild wall thickening involving duodenum and proximal portion of jejunum. Finding could represent infectious inflammatory enteritis. No bowel obstruction. No free fluid or free air. Dictated by: Mitch Hawley M.D. on 10/17/2018 at 13:16 Approved by: Mitch Hawley M.D. on 10/17/2018 at 13:38
[2018-10-17 12:29] LABS: Troponin I < 0.012 ng/mL (0.01-0.034)
[2018-10-17 12:49] LABS: Hematocrit 37.8 % (41-53); Hemoglobin 13.2 g/dL (13.5-17.5); Mean Corpuscular Hemoglobin 31.6 PG (26-34); Mean Corpuscular Volume 90.1 fL (80-100); Platelet Count 192 X10^3/uL (150-400); Red Blood Cell Count 4.19 X10^6/uL (4.5-5.9); Red Cell Distribution Width 12.8 % (11.6-14.8); White Blood Cell Count 14.5 X10^3/uL (4.5-11.0)
[2018-10-17 12:50] LABS: Add Manual Diff / Slide Review YES
[2018-10-17 12:51] LABS: Lactate (Lactic Acid) 1.3 mmol/L (0.7-2.1)
[2018-10-17 12:52] LABS: Alanine Aminotransferase 602 IU/L (21-72); Albumin 3.2 g/dL (3.5-5.0); Albumin Globulin Ratio 1.1 (1.0-2.8); Alkaline Phosphatase 205 U/L (38-126); Aspartate Aminotransferase 661 IU/L (17-59); BUN Creatinine Ratio 20.6 (6-22); Blood Urea Nitrogen 33 mg/dL (9-20); Calcium 7.9 mg/dL (8.4-10.2); Carbon Dioxide 26 mmol/L (22-32); Chloride 81 mmol/L (98-107); Estimated Glomerular Filt Rate 43.2 mL/min (>60); Globulin 2.9 g/dL (1.7-4.1); Glucose 114 mg/dL (80-110); HEMOLYSIS < 15 (0-50); Potassium 3.5 mmol/L (3.4-5.1); Total Protein 6.1 g/dL (6.3-8.2)
[2018-10-17 12:56] LABS: Sodium 118 mmol/L (137-145)
[2018-10-17 13:08] LABS: Lipase 35223 U/L (23-300)
[2018-10-17 13:40] LABS: Neutrophils Absolute Manual 13050 /uL (3000-5900); Total Cells Counted 100
[2018-10-17 13:43] LABS: Burr Cells 1+; Tear Drop Cells 1+
--- NOTE | 2018-10-17 13:53 | DI.US.S_ITS ---
PROCEDURE: US ABDOMEN LIMITED INDICATIONS: GB ABN ON CT TECHNIQUE: Real-time focused scanning was performed of the abdomen, with image documentation. COMPARISON: None. FINDINGS: Markedly thickened gallbladder wall is seen and measures up to 9.1 mm in thickness. There is sludge material versus polyp seen in gallbladder lumen. Positive sonographic Mckeon's sign is noted. There is no gross intrahepatic biliary ductal dilatation. Common bile that measures up to 9.8 mm in diameter. IMPRESSION: 1. Sludge material and possible small stones/polyp seen in gallbladder lumen. Gallbladder wall thickening and positive sonographic Mckeon's sign concerning for acute cholecystitis. 2. Mild prominence of common bile that measures up to 1 cm in diameter. No obvious choledocholithiasis. Dictated by: Mitch Hawley M.D. on 10/17/2018 at 14:49 Approved by: Mitch Hawley M.D. on 10/17/2018 at 14:50
[2018-10-17] MEDS: PIPERACILLIN-TAZO 3.375 GM/50 ML FROZ.PIGGY IV ×2 (14:29→22:01)
[2018-10-17] MEDS: SODIUM CHLORIDE 0.9% 1,000 ML 1000 ML IV (14:53)
--- NOTE | 2018-10-17 15:24 | P.CONS_ITS ---
History of Present Illness Consult details Date Patient Seen: 10/18/18 Time Patient Seen: 07:25 Chief complaint: abd pain and syncope Reason for consult: cholecystitis Narrative: 60-year-old male presented to the emergency room with acute onset of abdominal pain and evidence of pancreatitis. He developed back pain 6 days ago and was evaluated in the emergency room and at that time he underwent a non contrast CT for evaluation of renal calculi which was negative. His abdominal pain failed to improve he had associated nausea and malaise and presented to his PCP yesterday where he had syncope and transferred to the emergency room with hypotension. In the emergency room he underwent a CTA of his chest abdomen pelvis as well as an ultrasound of his right upper quadrant which demonstrated gallstones some gallbladder wall thickening and his laboratory studies were consistent with pancreatitis, RAYRAY and transaminitis. He has no history of prior pancreatitis or biliary disease. Since admission he has been NPO he had moderate hypotension for which he has received saline fluid resuscitation with response and is on a minimal amount of vasopressor support. Currently he is feeling much better with significant improvement of his ab dominal pain which is epigastric and R flank and resolution of his associated nausea. His medical history is significant for CAD remote VA with stenting on ASA only no anticoagulation, no major abdominal surgeries. [facility] Medical History HTN (hypertension) (Acute) Hyperlipidemia (Acute) Kidney stones (Acute) Surgical History H/O heart artery stent (Acute) History of inguinal hernia repair (Acute) No pertinent past surgical history (Acute) Social History household members: spouse Smoking Status: Never smoker alcohol intake: current Social History household members: spouse Smoking Status: Never smoker alcohol intake: current Meds Home Medications and Allergies Home Medications Medication Instructions Recorded Confirmed Type ramipril 10 mg PO DAILY #0 02/05/07 10/17/18 History rosuvastatin [Crestor] 10 mg PO DAILY #0 10/17/16 10/17/18 History aspirin 162.5 mg PO DAILY 10/17/18 10/17/18 History carvedilol 25 mg PO BID 10/17/18 10/17/18 History coenzyme Q10 [CoQ-10] 100 mg PO DAILY 10/17/18 10/17/18 History hydrochlorothiazide 25 mg PO DAILY 10/17/18 10/17/18 History lorazepam 0.5 mg PO TID PRN 10/17/18 10/17/18 History niacin 250 mg PO BID 10/17/18 10/17/18 History Allergies Allergy/AdvReac Type Severity Reaction Status Date / Time No Known Drug Allergies Allergy Verified 10/11/18 22:26 Review of Systems Review of Systems ROS Unobtainable: All systems reviewed & are unremarkable except as noted in HPI and below Exam Vital Signs (past 8 hours): - 10/17/18 12:05 10/17/18 12:10 10/17/18 12:15 Temperature 97.6 F Pulse Rate 75 75 75 Respiratory Rate 32 H 25 H 25 H Blood Pressure 74/46 L Blood Pressure [Right Arm] 68/51 L 89/51 L Pulse Oximetry 94 97 97 10/17/18 12:20 10/17/18 12:25 10/17/18 12:33 Temperature Pulse Rate 76 81 81 Respiratory Rate 31 H 26 H 25 H Blood Pressure Blood Pressure [Right Arm] 94/59 L 81/47 L 92/50 L Pulse Oximetry 96 96 98 10/17/18 12:50 10/17/18 12:55 10/17/18 13:00 Temperature Pulse Rate 89 87 84 Respiratory Rate 26 H 24 28 H Blood Pressure Blood Pressure [Right Arm] 108/42 L 81/43 L 93/59 L Pulse Oximetry 95 94 95 10/17/18 13:05 10/17/18 13:10 10/17/18 13:15 Temperature Pulse Rate 84 88 87 Respiratory Rate 24 24 23 Blood Pressure Blood Pressure [Right Arm] 77/45 L 84/62 L 93/59 L Pulse Oximetry 97 95 96 10/17/18 13:20 10/17/18 13:25 10/17/18 13:30 Temperature Pulse Rate 94 H 87 84 Respiratory Rate 25 H 24 26 H Blood Pressure Blood Pressure [Right Arm] 97/73 81/43 L 91/50 L Pulse Oximetry 95 94 96 10/17/18 13:35 10/17/18 13:40 10/17/18 13:46 Temperature Pulse Rate 85 82 81 Respiratory Rate 27 H 24 22 Blood Pressure Blood Pressure [Right Arm] 91/53 L 82/50 L 87/60 L Pulse Oximetry 96 97 97 10/17/18 13:50 10/17/18 13:56 10/17/18 14:00 Temperature Pulse Rate 96 H 80 83 Respiratory Rate 23 22 22 Blood Pressure Blood Pressure [Right Arm] 94/56 L 93/52 L 97/80 Pulse Oximetry 97 97 97 10/17/18 14:22 10/17/18 15:03 Temperature Pulse Rate 87 81 Respiratory Rate 23 25 H Blood Pressure Blood Pressure [Right Arm] 93/59 L 98/61 Pulse Oximetry 95 97 Oxygen Delivery Method Room Air Narrative Exam Narrative: General-adult male no acute distress, well nourished HEENT-moist mucous membranes, no scleral icterus Neck-supple with full range of motion, no lymphadenopathy Chest- no labored respirations, clear to auscultation bilaterally Cardiac-regular rate and rhythm Abdomen-moderately distended tender epigastric and right flank to deep palpation, no peritonitis. Extremities-no edema, warm well perfused Neurological-alert and oriented x 3. No focal deficits Skin-normal temperature and turgor, no rashes or ulcers Objective Labs Result Diagrams: 10/18/18 04:53 10/18/18 04:53 Labs: Laboratory Results - last 24 hr 10/17/18 10/17/18 10/17/18 11:45 11:45 12:30 WBC 16.2 H RBC 4.24 L Hgb 13.4 L Hct 38.1 L MCV 89.8 MCH 31.7 MCHC 35.3 RDW 13.0 Plt Count 205 Neut % (Auto) 87.0 H Lymph % (Auto) 5.7 L [place] % (Auto) 6.5 Eos % (Auto) 0.6 L Baso % (Auto) 0.2 Neut # (Auto) 68069 H Lymph # (Auto) 900 L [place] # (Auto) 1100 H Eos # (Auto) 100 Baso # (Auto) 0 Total Counted Seg Neutrophils % Band Neutrophils % Lymphocytes % (Manual) Monocytes % (Manual) Eosinophils % (Manual) Metamyelocytes % Neutrophils # (Manual) RBC Morphology Tear Drop Cells [place] Cells Sodium 120 L D Potassium 3.5 Chloride 77 L Carbon Dioxide 28 BUN 33 H Creatinine 1.60 H Estimated GFR 43.2 L BUN/Creatinine Ratio 20.6 Glucose 117 H Lactate Calcium 8.3 L Total Bilirubin 2.8 H AST 701 H ALT 628 H Alkaline Phosphatase 209 H D Total Creatine Kinase 41 L CK-MB (CK-2) TNP CK-MB (CK-2) Rel Index TNP Troponin I < 0.012 Total Protein 6.3 Albumin 3.3 L Globulin 3.0 Albumin/Globulin Ratio 1.1 Lipase 29108 H D Blood Type A Positive Antibody Screen Negative 10/17/18 10/17/18 10/17/18 12:30 12:30 12:30 WBC 14.5 H RBC 4.19 L Hgb 13.2 L Hct 37.8 L MCV 90.1 MCH 31.6 MCHC 35.0 RDW 12.8 Plt Count 192 Neut % (Auto) Not Reportable Lymph % (Auto) Not Reportable [place] % (Auto) Not Reportable Eos % (Auto) Not Reportable Baso % (Auto) Not Reportable Neut # (Auto) Lymph # (Auto) Not Reportable [place] # (Auto) Not Reportable Eos # (Auto) Baso # (Auto) Not Reportable Total Counted 100 Seg Neutrophils % 76.0 H Band Neutrophils % 14.0 H Lymphocytes % (Manual) 3.0 L Monocytes % (Manual) 5.0 Eosinophils % (Manual) 1.0 L Metamyelocytes % 1.0 H Neutrophils # (Manual) 10488 H RBC Morphology See below Tear Drop Cells 1+ H [place] Cells 1+ H Sodium 118 L* Potassium 3.5 Chloride 81 L Carbon Dioxide 26 BUN 33 H Creatinine 1.60 H Estimated GFR 43.2 L BUN/Creatinine Ratio 20.6 Glucose 114 H Lactate 1.3 Calcium 7.9 L Total Bilirubin 3.0 H AST 661 H ALT 602 H Alkaline Phosphatase 205 H Total Creatine Kinase CK-MB (CK-2) CK-MB (CK-2) Rel Index Troponin I Total Protein 6.1 L Albumin 3.2 L Globulin 2.9 Albumin/Globulin Ratio 1.1 Lipase Blood Type Antibody Screen Assessment & Plan Assessment & Plan narrative: 68 y.o male admitted to the ICU with gallstone pancreatitis, acute kindey injury transaminitis, and acute cholecystitis. I reviewed his laboratory studies are from admission which demonstrate lipase 35,000, WBC 16,000, TB 3.0, AST 700, ALT 600, AP 200, Cr 1.6. His imaging demonstrates gallstones and sludge, no evidence of choledocholithiasis. Recommendations -Continue fluid resuscitation for pancreatitis -Wean pressors as able -Continue Zosyn for acute cholecystitis -Following resolution of pancreatitis will plan for in hospital cholecystectomy with intra operative cholangiogram. -Hold aspirin if possible
[2018-10-17 16:18] LABS: Magnesium 2.2 mg/dL (1.6-2.3)
[2018-10-17 16:23] LABS: Procalcitonin 36.29 ng/mL (<0.5)
--- NOTE | 2018-10-17 17:00 | PC.NURSE ---
Addendum entered by Prachi Ernst R.N. 10/17/18 23:11: Failed attempt to place valverde catheter with coude catheter. Voiding in urinal. Addendum entered by Prachi Ernst R.N. 10/17/18 22:49: Discussed poc with PATCH DRILLER. Notified of K 3.2, levophed status, and MAPs. Orders received. Addendum entered by Prachi Ernst R.N. 10/17/18 22:47: Pt at 20mcg/min of Levophed via PICC with carrier KVO. BP 96/45 with map of 70. 92% on RA. HR 79. PATCH DRILLER notified. Addendum entered by Prachi Ernst R.N. 10/17/18 22:21: Pt has had trending MAPs 56-71. Now has Levophed drip at 12mcg/min. Mentating well, denies headache. Denies pain. Addendum entered by Prachi Ernst R.N. 10/17/18 21:11: Pt in trendelenberg, levophed drip started at 5mcg/min. Addendum entered by Prachi Ernst R.N. 10/17/18 20:43: Pt sleeping with BP noted to be 70s/20s. Arousable and appropriate. HR 83. IVF decreased to 100/hr. PATCH DRILLER notified and at bedside. Considering Levophed drip. Addendum entered by Prachi Ernst R.N. 10/17/18 20:12: Pt mentating well, BP 70s/20s, HR 84. PATCH DRILLER at bedside and notified of change in vitals. Pt asymptomatic. 0/10 pain. Original Note: Pt admitted from ER with ER nurse ko bates at 16:45. at bedside. Pt in NAD. VSS 110/78, 85 NSR, 95% RA, 98.1, 98.5 kg. Pain 4/10 to upper abdomen. PICC being placed at bedside now.
--- NOTE | 2018-10-17 17:22 | DI.RAD.S_ITS ---
PROCEDURE: XR CHEST FOR PICC 1V INDICATIONS: Confirm PICC placement TECHNIQUE: One view of the chest was acquired. COMPARISON: [facility], , XR CHEST 1V, 10/17/2018, 12:05. FINDINGS: Surgical changes and devices: There is a right PICC, the tip of which is projected over the cavoatrial junction. Lungs and pleura: Lungs are clear. No pleural effusions or pneumothorax. Mediastinum: Mediastinal contours appear normal. Heart size is normal. Bones and chest wall: No suspicious bony lesions. Overlying soft tissues appear unremarkable. IMPRESSION: No acute cardiopulmonary findings. Dictated by: Roxann Dixon M.D. on 10/17/2018 at 17:41 Approved by: Roxann Dixon M.D. on 10/17/2018 at 17:41
[2018-10-17] MEDS: MORPHINE 2 MG/ML INJ IV (18:04)
[2018-10-17] MEDS: SODIUM CHLORIDE 0.9% 1,000 ML 150 ML IV (18:05)
[2018-10-17] MEDS: ONDANSETRON 4 MG/2 ML INJ IV (18:07)
[2018-10-17 19:37] LABS: BUN Creatinine Ratio 22.5 (6-22); Blood Urea Nitrogen 36 mg/dL (9-20); Calcium 7.2 mg/dL (8.4-10.2); Carbon Dioxide 22 mmol/L (22-32); Chloride 86 mmol/L (98-107); Estimated Glomerular Filt Rate 43.2 mL/min (>60); Glucose 103 mg/dL (80-110); HEMOLYSIS < 15 (0-50); Potassium 3.2 mmol/L (3.4-5.1); Sodium 121 mmol/L (137-145)
[2018-10-17] MEDS: HEPARIN 5,000 UNIT/ML VIAL 5000 UNIT SUBCUT (19:55)
[2018-10-17] MEDS: NOREPINEPHRINE 4 MG in DEXTROSE 5% IN WATER 250 ML 19.05 ML IV (21:10)
--- NOTE | 2018-10-17 22:21 | PM.HP.1 ---
History of Present Illness History of Present Illness Date Patient Seen: 10/17/18 Time Patient Seen: 19:55 Chief complaint: abd pain and syncope Narrative: Mr. Ari Farrar is a 68-year-old male patient with history significant for hypertension, hyperlipidemia, myocardial infarction in 2007 status post stenting prior kidney stones who presents to the ER complaining upper abdominal and lower chest pain and syncope while at his physician's office today. The patient reports the onset of his pain was 6 days ago starting in the mid back and was evaluated on 10/11 2018 at [facility] ER with pain described as right flank pain radiating to the abdomen. At that date was discharged with diagnosis of kidney stone. The patient was seen by Dr. Correa his PCP where he had his witnessed syncopal event. Patient was seated the time and no associated trauma. EMS was summoned the patient was found to be hypotensive blood pressure in the 70s and was transported to the emergency department. The patient reports fevers and chills at the onset of his symptoms and reports increasing pain following eating. He denies headaches nasal congestion or sore throat denies chest pain or palpitations, he has had epigastric pain and bilateral upper quadrant pain and had this had nausea intermittently without vomiting. Denies change in bowel habits or dysuria. He is independent in his ADLs. Upon arrival in the ER the patient is hypertensive with a blood pressure of 81/43 with heart rate of 87, respirations of 24 and oxygenation 94%. An ultrasound of the abdomen notes gallbladder wall thickening with a positive Mckeon sign and sludge/polyp at the gallbladder lumen. Common duct mild dilation at 9.[address] is obtained with findings of mild enlarged heart, no PE, no aneurysm thickening of the proximal jejunum consistent with enteritis, distended gallbladder with suggestion of gallbladder wall thickening and edema concerning for cholecystitis. While in the ER the patient received 3 L of normal saline and on laboratory analysis had an elevated white count of 14.5, hemoglobin 13.2, hematocrit of 37.8 and platelets 192. On chemistries noted to be markedly hyponatremic at 118 with a potassium of 3.5, BUN of 33 and creatinine 1.6 and nonfasting glucose of 114. This is compared to laboratory analysis from his prior admission where his sodium level was 134 and creatinine 1.0. The patient was also found have an elevated lipase at 35,223 and 6 days prior was 65. His liver functions reveal a total bilirubin of 3.0, AST of 661, ALT of 6 O2 and alkaline phosphatase at 205. His pros calcitonin is 36.29 and a lactic acid of 1.3. His magnesium is 2 2 and his troponin is negative at less than 0.012. The patient is is times admitted for sepsis with hyponatremia and presumably gallstone induced cholecystitis and pancreatitis. Dr. Nagel was consulted from the ER. Patient History Medical History HTN (hypertension) (Acute) Hyperlipidemia (Acute) Kidney stones (Acute) Surgical History (Updated 10/17/18 @ 23:08 by JON Jackson) H/O heart artery stent (Acute) History of inguinal hernia repair (Acute) No pertinent past surgical history (Acute) Social History household members: spouse Smoking Status: Never smoker alcohol intake: current Family & Social History Social History: household members spouse Prior Living Arrangements House Safety & Behavioral: Feels Safe in Current Yes Environment Been Physically Hurt or No Threatened By a Person Suicidal Ideation Description None Suicide Plan Description No Plan Tobacco & Substance use: Smoking Status Never smoker alcohol intake current alcohol intake frequency a few times a week Substance Use Type does not use Comment: The patient lives in a single family home with his to whom he has been for 38 years. His parents are both his father dying at age 49 related to [place] and his mother at age 62 related to [place]. He has 1 sister who is a [employer] nuclear scientist and has 2 daughters both in good health. Occupation: Retired Smoking: Patient has never smoked Alcohol: 2-3 drinks per week. Substance use: No recreational pharmaceuticals or herbal or cannabis products. Advanced directives: Patient does advanced directive but not present, in direct discussion with the patient and his he wishes to be FULL CODE. He expresses wish for no prolonged life support and designates his to be his surrogate decision maker. Meds Home Medications and Allergies Home Medications Medication Instructions Recorded Confirmed Type ramipril 10 mg PO DAILY #0 02/05/07 10/17/18 History rosuvastatin [Crestor] 10 mg PO DAILY #0 10/17/16 10/17/18 History aspirin 162.5 mg PO DAILY 10/17/18 10/17/18 History carvedilol 25 mg PO BID 10/17/18 10/17/18 History coenzyme Q10 [CoQ-10] 100 mg PO DAILY 10/17/18 10/17/18 History hydrochlorothiazide 25 mg PO DAILY 10/17/18 10/17/18 History lorazepam 0.5 mg PO TID PRN 10/17/18 10/17/18 History niacin 250 mg PO BID 10/17/18 10/17/18 History Allergies Allergy/AdvReac Type Severity Reaction Status Date / Time No Known Drug Allergies Allergy Verified 10/11/18 22:26 Review of Systems Review of Systems ROS Unobtainable: All systems reviewed & are unremarkable except as noted in HPI and below Exam Vital Signs (past 8 hours): - 10/17/18 14:22 10/17/18 15:03 10/17/18 16:52 Temperature 97.8 F Pulse Rate 87 81 85 Respiratory Rate 23 25 H 26 H Blood Pressure 114/61 Blood Pressure [Right Arm] 93/59 L 98/61 Pulse Oximetry 95 97 94 10/17/18 20:11 10/17/18 22:10 10/17/18 22:18 Temperature Pulse Rate 83 87 82 Respiratory Rate 15 14 Blood Pressure 82/43 L 89/38 L 98/49 L Blood Pressure [Right Arm] Pulse Oximetry 95 93 Oxygen Delivery Method Room Air Oxygen Flow Rate 0 Narrative Exam Narrative: GENERAL APPEARANCE: well developed, well nourished, in no acute distress or pain HEAD: Normocephalic, atraumatic, no scalp lesions. EYES: pupils equal, round, reactive to light and accommodation, sclera non-icteric, extraocular movement intact without nystagmus. EARS: normal external structures, no ear pain NOSE: sinuses non tender to percussion, no rhinorrhea ORAL CAVITY: mucosa moist without lesions or exudate, own dentition, tongue in midline. THROAT: normal, no erythema NECK/THYROID: neck supple, no jugular venous distention, no carotid bruit, no thyromegaly, trachea midline. LYMPH NODES: no cervical or supraclavicular lymphadenopathy. SKIN: warm and dry, no suspicious lesions, no rashes, good turgor. HEART: regular rate and rhythm, distant heart sounds, S1-S2 without murmur, no rubs or gallops, brisk capillary refill, no edema LUNGS: clear to auscultation bilaterally, no coarseness crackles or wheezing, no cough present CHEST: Shallow respirations, symmetrical movement, no accessory muscle use, no pain to AP and lateral compression. ABDOMEN: Soft, no distention, pain on palpation epigastrium and bilateral upper quadrants, positive Mckeon sign, no rebound tenderness, no organomegaly, active bowel tones. BACK: Nontender EXTREMITIES: moves all extremities, strength is 5/5 and symmetrical, no deformities or joint effusions. NEUROLOGIC: AAO x4,cranial nerves II-XII grossly intact , motor strength normal upper and lower extremities, sensory exam intact to light touch, hearing grossly normal to speech. PSYCH: alert, mildly anxious, cognitive function intact, good eye contact, appropriate with stable behavior Objective Labs Result Diagrams: 10/17/18 12:30 10/17/18 19:16 Labs: Laboratory Results - last 24 hr 10/17/18 10/17/18 10/17/18 11:45 11:45 12:30 WBC 16.2 H RBC 4.24 L Hgb 13.4 L Hct 38.1 L MCV 89.8 MCH 31.7 MCHC 35.3 RDW 13.0 Plt Count 205 Neut % (Auto) 87.0 H Lymph % (Auto) 5.7 L [place] % (Auto) 6.5 Eos % (Auto) 0.6 L Baso % (Auto) 0.2 Neut # (Auto) 18909 H Lymph # (Auto) 900 L [place] # (Auto) 1100 H Eos # (Auto) 100 Baso # (Auto) 0 Total Counted Seg Neutrophils % Band Neutrophils % Lymphocytes % (Manual) Monocytes % (Manual) Eosinophils % (Manual) Metamyelocytes % Neutrophils # (Manual) RBC Morphology Tear Drop Cells Ronald Cells Sodium 120 L D Potassium 3.5 Chloride 77 L Carbon Dioxide 28 BUN 33 H Creatinine 1.60 H Estimated GFR 43.2 L BUN/Creatinine Ratio 20.6 Glucose 117 H Lactate Calcium 8.3 L Magnesium Total Bilirubin 2.8 H AST 701 H ALT 628 H Alkaline Phosphatase 209 H D Total Creatine Kinase 41 L CK-MB (CK-2) TNP CK-MB (CK-2) Rel Index TNP Troponin I < 0.012 Total Protein 6.3 Albumin 3.3 L Globulin 3.0 Albumin/Globulin Ratio 1.1 Lipase 91863 H D Procalcitonin Nasal Screen MRSA (PCR) Blood Type A Positive Antibody Screen Negative 10/17/18 10/17/18 10/17/18 12:30 12:30 12:30 WBC 14.5 H RBC 4.19 L Hgb 13.2 L Hct 37.8 L MCV 90.1 MCH 31.6 MCHC 35.0 RDW 12.8 Plt Count 192 Neut % (Auto) Not Reportable Lymph % (Auto) Not Reportable [place] % (Auto) Not Reportable Eos % (Auto) Not Reportable Baso % (Auto) Not Reportable Neut # (Auto) Lymph # (Auto) Not Reportable [place] # (Auto) Not Reportable Eos # (Auto) Baso # (Auto) Not Reportable Total Counted 100 Seg Neutrophils % 76.0 H Band Neutrophils % 14.0 H Lymphocytes % (Manual) 3.0 L Monocytes % (Manual) 5.0 Eosinophils % (Manual) 1.0 L Metamyelocytes % 1.0 H Neutrophils # (Manual) 92394 H RBC Morphology See below Tear Drop Cells 1+ H [place] Cells 1+ H Sodium 118 L* Potassium 3.5 Chloride 81 L Carbon Dioxide 26 BUN 33 H Creatinine 1.60 H Estimated GFR 43.2 L BUN/Creatinine Ratio 20.6 Glucose 114 H Lactate 1.3 Calcium 7.9 L Magnesium Total Bilirubin 3.0 H AST 661 H ALT 602 H Alkaline Phosphatase 205 H Total Creatine Kinase CK-MB (CK-2) CK-MB (CK-2) Rel Index Troponin I Total Protein 6.1 L Albumin 3.2 L Globulin 2.9 Albumin/Globulin Ratio 1.1 Lipase Procalcitonin Nasal Screen MRSA (PCR) Blood Type Antibody Screen 10/17/18 10/17/18 10/17/18 12:30 12:30 16:45 WBC RBC Hgb Hct MCV MCH MCHC RDW Plt Count Neut % (Auto) Lymph % (Auto) [place] % (Auto) Eos % (Auto) Baso % (Auto) Neut # (Auto) Lymph # (Auto) [place] # (Auto) Eos # (Auto) Baso # (Auto) Total Counted Seg Neutrophils % Band Neutrophils % Lymphocytes % (Manual) Monocytes % (Manual) Eosinophils % (Manual) Metamyelocytes % Neutrophils # (Manual) RBC Morphology Tear Drop Cells [place] Cells Sodium Potassium Chloride Carbon Dioxide BUN Creatinine Estimated GFR BUN/Creatinine Ratio Glucose Lactate Calcium Magnesium 2.2 Total Bilirubin AST ALT Alkaline Phosphatase Total Creatine Kinase CK-MB (CK-2) CK-MB (CK-2) Rel Index Troponin I Total Protein Albumin Globulin Albumin/Globulin Ratio Lipase Procalcitonin 36.29 H Nasal Screen MRSA (PCR) Negative for mrsa Blood Type Antibody Screen 10/17/18 19:16 WBC RBC Hgb Hct MCV MCH MCHC RDW Plt Count Neut % (Auto) Lymph % (Auto) [place] % (Auto) Eos % (Auto) Baso % (Auto) Neut # (Auto) Lymph # (Auto) [place] # (Auto) Eos # (Auto) Baso # (Auto) Total Counted Seg Neutrophils % Band Neutrophils % Lymphocytes % (Manual) Monocytes % (Manual) Eosinophils % (Manual) Metamyelocytes % Neutrophils # (Manual) RBC Morphology Tear Drop Cells [place] Cells Sodium 121 L Potassium 3.2 L Chloride 86 L Carbon Dioxide 22 BUN 36 H Creatinine 1.60 H Estimated GFR 43.2 L BUN/Creatinine Ratio 22.5 H Glucose 103 Lactate Calcium 7.2 L Magnesium Total Bilirubin AST ALT Alkaline Phosphatase Total Creatine Kinase CK-MB (CK-2) CK-MB (CK-2) Rel Index Troponin I Total Protein Albumin Globulin Albumin/Globulin Ratio Lipase Procalcitonin Nasal Screen MRSA (PCR) Blood Type Antibody Screen Assessment & Plan Assessment & Plan narrative: The patient is admitted to the hospital for acute cholecystitis with pancreatitis presumed related to gallstone no longer evident with elevated LFTs and lipase. 1. Acute Sepsis, present on admission -the patient meets sepsis criteria with elevated WBCs a 14.5, elevated procalcitonin at 36.29, acute kidney injury with elevation creatinine from 1.0-1.6, elevated bilirubin and hypotension. -patient is receive fluid resuscitation over 3 L with blood pressure refractory requiring norepinephrine infusion to titrate to map greater than 65. -lactate is measured at 1.3. -will treat underlying cause. 2. Acute cholecystitis, present on admission, active -patient with cholecystitis identified on abdominal ultrasound and CTA. Ultrasound defy sludge/polyp in the gallbladder lumen. Common duct with mild dilatation at 9.8 mm without evidence of ductal obstruction. -Zosyn started in the emergency department will continue Zosyn 3.375 g every 6 hours as a single agent regimen -thank you to Dr. Nagel, general surgery who has consulted. 3. Acute pancreatitis, present on admission, active. -patient with new onset pancreatitis with elevation of lipase to 35,223 previously on 10/11/2018 was 65. -patient will be NPO. -IV normal saline at 100 cc per hour, will monitor serum sodium related to hyponatremia and monitor appropriate repletion. -Dilaudid 0.5-1 mg IV as needed for pain. 4. Acute hyponatremia, present on admission, active. -serum sodium was 120 on admission and on re-evaluation following fluid bolus went down to 118. Recheck on admission find serum sodium to 122. Patient without evidence of confusion. -will decrease normal saline from 150 cc to 100 cc/hour. -will monitor sodium repletion. 5. Acute kidney injury, present on admission, active -patient with elevation in creatinine from 1.0 to 1.6. BUN is 33. -RAYRAY likely related to hypoperfusion, patient with hypertensive single episode today. -will treat underlying sepsis causing hypotension and monitor renal function. -will place Perez catheter to monitor fluid balance and adequacy of urine output. 6. Chronic Hypertension, not present on admission. -at this time patient is hypotensive on norepinephrine, will hold antihypertensive medications. 7. Chronic coronary artery disease status post DC, stable. -patient without complaints of chest pain, EKG is sinus rhythm without ectopy ST elevation or indication of infarct. -will monitor per ICU standards. The patient is admitted to the intensive care unit for sepsis with septic shock, cholecystitis, pancreatitis and acute kidney injury. Surgery has been consulted for evaluation for cholecystectomy. The patient is admitted as inpatient with expected length of stay to be greater than 2 midnights. Critical care time: 60 minutes Involved in direct patient contact for evaluation, re-evaluation and procedures. Scores GCS [place] coma scale eye opening: Spontaneous [place] coma scale verbal response: Orientated [place] coma scale motor response: Obey commands [place] coma scale total score: 15 SOFA PaO2/FIO2: >=400 mmHg Platelets: >= 150 Bilirubin: 2.0-5.9 mg/dL Hypotension: Dopamine >5 or norepinephrine <=0.1 [place] Coma Scale: 15 Renal: Creatinine 1.2-1.9 mg/dL SOFA Score: 6 Quality VTE Deep Vein Thrombosis/Pulmonary Embolism Present on Admission: No
[2018-10-17 23:47] LABS: HCO3 ABG 20 mmol/L (22-26); Oxygen Saturation ABG 95 % (95-100); PCO2 ABG 32.1 mmHg (35-45); PO2 ABG 77 mmHg (80-100); TCO2 ABG 21 mmol/L (21-31)
[2018-10-17 23:48] LABS: Fractionated Inspired Oxygen 21
[2018-10-18] VITALS (28 sets, daily range): BP systolic 78–141; BP diastolic 40–76; PULSE 68–84; RESP 12–20; TEMP 36.4–37.1; O2SAT 92–98
[2018-10-18] MEDS: LIDOCAINE 2% (UROJET) 5 ML GEL TOP (00:10)
[2018-10-18] MEDS: POTASSIUM CHLORIDE 60 MEQ in SODIUM CHLORIDE 0.9% 500 ML 88.333 ML IV (00:24)
[2018-10-18 00:37] LABS: Bacteria Urine None Seen; WBC Urine None Seen (0-5/HPF)
[2018-10-18 00:41] LABS: Appearance Urine UA CLEAR; Bilirubin Urine UA NEGATIVE (NEGATIVE); Color Urine UA YELLOW; Glucose Urine UA NEGATIVE (Negative); Ketones Urine UA NEGATIVE (NEGATIVE); Leukocyte Esterase Urine UA NEGATIVE (NEGATIVE); Nitrite Urine UA NEGATIVE (Negative); Occult Blood Urine UA TRACE-LYSED (Negative); Protein Urine UA NEGATIVE (Negative); Specific Gravity Urine UA <=1.005 (1.000-1.035); pH Urine UA 6.5 (4.5-8.0)
[2018-10-18 00:53] LABS: Culture Indicated Urine Cult Not Indicated; RBC Urine 0-1/HPF (0-5/HPF)
[2018-10-18] MEDS: MELATONIN 3 MG TABLET PO ×2 (01:00→21:57)
[2018-10-18] MEDS: HYDROMORPHONE 0.5 MG INJ IV ×2 (01:00→09:23)
[2018-10-18] MEDS: NOREPINEPHRINE 4 MG in DEXTROSE 5% IN WATER 250 ML 76.2 ML IV (02:00)
[2018-10-18] MEDS: SODIUM CHLORIDE 0.9% 1,000 ML 150 ML IV ×2 (03:13→20:42)
[2018-10-18] MEDS: PIPERACILLIN-TAZO 3.375 GM/50 ML FROZ.PIGGY IV (03:15)
[2018-10-18 03:30] LABS: Acinetobacter baumannii Not Detected (Not Detect); Enterobacteriaceae species Detected (Not Detect); Enterococcus species Not Detected (Not Detect); KPC (carbapenem-resist gene) Not Detected (Not Detect); Listeria monocytogenes Not Detected (Not Detect); Staphylococcus species Not Detected (Not Detect); Streptococcus agalactiae (Gr B Not Detected (Not Detect); Streptococcus pneumonia Not Detected (Not Detect); Streptococcus pyogenes (Gr A) Not Detected (Not Detect); Streptococcus species Not Detected (Not Detect)
[2018-10-18 03:31] LABS: Candida albicans Not Detected (Not Detect); Candida glabrata Not Detected (Not Detect); Candida krusei Not Detected (Not Detect); Candida parapsilosis Not Detected (Not Detect); Candida tropicalis Not Detected (Not Detect); E. coli Detected (Not Detect); Enterobacter cloacae complex Not Detected (Not Detect); Haemophilus influenzae Not Detected (Not Detect); Neisseria meningitidis Not Detected (Not Detect); Proteus species Not Detected (Not Detect); Pseudomonas aeruginosa Not Detected (Not Detect); Serratia marcescens Not Detected (Not Detect)
[2018-10-18 05:22] LABS: Add Manual Diff / Slide Review NO; Basophils Absolute Auto 0 /uL (0-100); Basophils Percent Auto 0.1 % (0-2); Eosinophils Absolute Auto 100 /uL (0-450); Eosinophils Percent Auto 0.4 % (2-4); Hematocrit 35.2 % (41-53); Hemoglobin 12.2 g/dL (13.5-17.5); Lymphocytes Absolute Auto 700 /uL (1100-4500); Lymphocytes Percent Auto 5.4 % (25-40); Mean Corpuscular HGB Conc 34.8 % (30-36); Mean Corpuscular Hemoglobin 31.4 PG (26-34); Mean Corpuscular Volume 90.2 fL (80-100); Monocytes Absolute Auto 1200 /uL (0-900); Monocytes Percent Auto 9.4 % (3-14); Neutrophils Absolute Auto 10400 /uL (1500-7000); Neutrophils Percent Auto 84.7 % (50-75); Platelet Count 178 X10^3/uL (150-400); Red Cell Distribution Width 12.9 % (11.6-14.8); White Blood Cell Count 12.3 X10^3/uL (4.5-11.0)
[2018-10-18 05:25] LABS: Lactate (Lactic Acid) 0.6 mmol/L (0.7-2.1)
[2018-10-18 05:29] LABS: HDL Cholesterol 9 mg/dL (40-60); Triglycerides 108 mg/dL (35-150)
[2018-10-18 05:30] LABS: Magnesium 2.3 mg/dL (1.6-2.3)
[2018-10-18 05:31] LABS: Cholesterol < 50 mg/dL (140-199); LDL Cholesterol Calculated 19 mg/dL (<100)
[2018-10-18 05:47] LABS: Alanine Aminotransferase 371 IU/L (21-72); Albumin 2.6 g/dL (3.5-5.0); Alkaline Phosphatase 158 U/L (38-126); Aspartate Aminotransferase 267 IU/L (17-59); BUN Creatinine Ratio 22.7 (6-22); Blood Urea Nitrogen 34 mg/dL (9-20); Calcium 7.4 mg/dL (8.4-10.2); Carbon Dioxide 23 mmol/L (22-32); Chloride 92 mmol/L (98-107); Estimated Glomerular Filt Rate 46.5 mL/min (>60); Globulin 2.6 g/dL (1.7-4.1); Glucose 125 mg/dL (80-110); HEMOLYSIS < 15 (0-50); Potassium 3.5 mmol/L (3.4-5.1); Sodium 124 mmol/L (137-145); Total Protein 5.2 g/dL (6.3-8.2)
[2018-10-18 06:04] LABS: Procalcitonin 21.01 ng/mL (<0.5)
[2018-10-18 06:06] LABS: Lipase 16569 U/L (23-300)
[2018-10-18] MEDS: NOREPINEPHRINE 4 MG in DEXTROSE 5% IN WATER 250 ML 15.24 ML IV (07:50)
[2018-10-18] MEDS: POTASSIUM CHLORIDE 40 MEQ in SODIUM CHLORIDE 0.9% 500 ML 130 ML IV (08:36)
[2018-10-18] MEDS: PIPERACILLIN-TAZO 4.5 GM/100 ML FROZ.PIGGY IV ×3 (08:42→21:54)
[2018-10-18] MEDS: HEPARIN 5,000 UNIT/ML VIAL 5000 UNIT SUBCUT ×2 (08:42→20:52)
--- NOTE | 2018-10-18 10:22 | PM.PN.1 ---
Subjective Subjective Date Patient Seen: 10/18/18 Interval history: Ari Farrar is a 68-year-old male patient with history significant for hypertension, hyperlipidemia, myocardial infarction in 2007 status post stenting prior kidney stones who presented to the ED from his PCP's office complaining abdominal pain and syncope and found to have acute cholecystitis with pancreatitis presumed related to gallstone no longer evident with elevated LFTs and lipase. The patient is resting in bed comfortably. He is rather somnolent but easily arousable. He reports he is sleepy because he just received dilaudid. He denies pain and only endorses mild discomfort in right upper quadrant and epigastrum. He continues to be on minimal vasopressor with levofed which is being titrated off. He has no other complaints and denies headache, shortness of breath, chest pain, nausea, vomiting, fever, chills, dysuria, diarrhea or constipation. He is voiding via valverde catheter and eliminating without difficulty. Exam Vital Signs (past 8 hours): - 10/19/18 00:00 10/19/18 03:23 Temperature 98.0 F 98.7 F Pulse Rate 71 76 Respiratory Rate 20 17 Blood Pressure 119/58 L 121/67 Pulse Oximetry 97 97 Oxygen Delivery Method Room Air Oxygen Flow Rate 0 Narrative Exam Narrative: General: Older gentleman lying in bed and in no acute distress, well-developed, well-nourished, somnolent but easily arousable and appropriately interactive. HEENT: Normocephalic, atraumatic. External ears without defect. Pupils equal, round, and reactive to light. Mild icteric sclerae, moist conjunctivae, and no lid lag. Oropharynx free of erythema and cobble stoning with moist mucosa. Neck: Supple with full range of motion. No jugular venous distension. No lymphadenopathy or thyromegaly. Cardiovascular: Regular rate and rhythm without murmurs, rubs, or gallops appreciated Pulmonary: Clear to auscultation bilaterally without crackles, wheezes, or rhonchi. Normal respiratory effort with no use of accessory muscles. Abdomen: Mildly firm, mild tenderness in epigastrum and RUQ, nondistended. No hepatosplenomegaly or masses appreciated. Extremities: No clubbing, cyanosis, or edema. Skin: Normal temperature, turgor, and texture; no rash, ulcers, or subcutaneous nodules appreciated. Mild jaundice. Neurological: Cranial nerves grossly intact. Psychiatric: Normal mood and affect. Mild somnolence but arousable. Appears alert and oriented to person, place, and time. Objective Labs Result Diagrams: 10/19/18 06:20 10/19/18 06:20 Labs: Laboratory Results - last 24 hr 10/18/18 10/18/18 10/18/18 04:53 04:53 19:40 Sodium 128 L Potassium 3.6 Chloride 97 L Carbon Dioxide 26 BUN 25 H Creatinine 1.00 Estimated GFR > 60.0 BUN/Creatinine Ratio 25.0 H Glucose 99 Calcium 7.7 L Lipase 05817 H D Procalcitonin 21.01 H Assessment & Plan Assessment & Plan narrative: Ari Farrar is a 68-year-old male patient with history significant for hypertension, hyperlipidemia, myocardial infarction in 2006 status post stenting prior kidney stones who presented to the ED from his PCP's office complaining abdominal pain and syncope and found to have acute cholecystitis with pancreatitis presumed related to gallstone no longer evident with elevated LFTs and lipase. 1. Acute septic shock, present on admission. Resolved. -Sepsis criteria met including: Leukocytosis (WBC 14.5), elevated procalcitonin at 36.29, tachycardic (HR 94), end-organ damage with acute kidney injury (creatinine 1.6) and persistent hypotension (BP 74/46) and not amenable to IV fluid resuscitation requiring vasopressor support. Lactate normal 1.3. -early goal-directed therapy met including: Broad-spectrum antibiotics and IV fluid and vasopressor resuscitation. 2. Acute cholecystitis, present on admission. Active. -Abdominal ultrasound and CTA of chest abdomen pelvis both demonstrated acute cholecystitis. Abdominal ultrasound also demonstrated sludge/polyp in the gallbladder lumen, common bile duct with mild dilatation at 9.8 mm without evidence of ductal obstruction. -Initial WBC 14.5 and procalcitonin 36.29. Trending down, WBC 12.3 and procalcitonin 21.01. Continue to trend WBC and procalcitonin daily. -Received Zosyn 4.5 g x1 in the ED. Continue Zosyn 4.5 g every 6 hours. -Consulted general surgery, Dr. Nagel, who will plan to perform cholecystectomy once patient has stabilized. 3. Acute pancreatitis, present on admission. Resolving. -Likely gallstone pancreatitis with elevation of lipase to 35,223 previously on 10/11/2018 was 65 with coinciding LFTs -initial lipase level 35,223. Trending down now 16,569. Continue to monitor lipase daily. -Continue bowel rest with NPO. -Continue IV fluid hydration with normal saline at 150 mL/hr. Continue to monitor serum sodium related to hyponatremia and monitor appropriate repletion as below. -Continue dilaudid 0.5-1 mg IV every 4 hours as needed for pain. 4. Acute hyponatremia, present on admission. Active. -Initial sodium level 120. Patient asymptomatic without evidence of confusion or generalized weakness. -Continue normal saline at 150 mL/hr. Sodium level now 124. -Continue to monitor sodium level closely and replete slowly. Do not replete more than 8 mEq/L per in 24 hours or at risk for osmotic demyelination syndrome. 5. Acute kidney injury, present on admission. Resolving. -Secondary to hypoperfusion from septic shock as well as possibly postobstructive due to CT evident prostate enlargement with mass effect on bladder. -Baseline creatinine 1.0. Initial creatinine 1.6. -Placed Valverde catheter due to possible bladder outlet obstruction and urinary retention. -Continued vasopressor support as necessary and titrated off. -Continue to optimize renal perfusion and avoid nephrotoxic agents. -Continue to monitor renal function daily. 6. Hypertension, not present on admission. Stable. -Held antihypertensive medications including carvedilol 25 mg twice daily, ramipril 10 mg daily and hydrochlorothiazide 25 mg daily and will consider restarting carvedilol in the next several days depending upon BP. Of note, ramipril may cause pancreatitis and hydrochlorothiazide will worsen hyponatremia. 7. Coronary artery disease status post [place], chronic, present on admission. Presumed stable. -No complaints of chest pain. -EKG is sinus rhythm without ectopy ST elevation or indication of infarct. -Continue to monitor closely on telemetry. Disposition: Patient likely to be hospitalized for several days. Plan is to stabilize patient and acute metabolic derangements then perform cholecystectomy thereafter. Quality VTE Deep Vein Thrombosis/Pulmonary Embolism Present on Admission: No
[2018-10-18] MEDS: ROSUVASTATIN 10 MG TABLET PO (13:35)
[2018-10-18] MEDS: ASPIRIN 325 MG TABLET 162.5 MG PO (13:35)
--- NOTE | 2018-10-18 14:02 | PC.NURSE ---
pt alert/oriented and without complaint- able ot wean off levophed at this time and pt is sitting up in chair visiting with spouse- medicated x 1 for c/o abd pressure/pain in which his b/p did decrease some , increased ivf to 150cc/h continues with zosyn as abx and npo status - did take po rx with few sips of h20 as per MD order. SR with first degree avb- scd's on while in bed, great uop per valverde and small stool (pebble) per bsc-
--- NOTE | 2018-10-18 16:39 | CM.DANOTE ---
Discharge Planning/Care Management DCP: assessment: initiated: Case received, EMR reviewed. Discussed case in Team Rounds. Pt is a 68 year old male who admitted yesterday evening to care of hospitalist team. General surgery team is consulting. Dr. Trevino is following pt today, her progress note is not yet available. Payer: [facility]. PCP: Dr. Cher Correa Pt was admitted with dx of sepsis, hyponatremia and likely gallstone induced cholecystitis and pancreatitis. Went to ICU setting to check in, pt was in middle of receiving care. RN Mary confirmed pt was quite ill but at baseline alert and oriented with a very supportive spouse. She reported pt had been to the ER x2 and sent home and were relieved when he was finally admitted to the hospital. DCP team will check in with pt and his to continue the assessment process and assist with d/c issues and options as these are identified. CM Discharge Assessment Start: 10/18/18 16:38 Freq: Status: Active Protocol: Document 10/18/18 16:38 ITV (Rec: 10/18/18 16:38 ITV [id number]) Discharge Planning Assessment Advance Directives? No History Provided By Medical Record Prior Living Arrangements House Household Members spouse Is patient alert and oriented? Yes Review Status In Process
[2018-10-18 20:10] LABS: Blood Urea Nitrogen 25 mg/dL (9-20); Calcium 7.7 mg/dL (8.4-10.2); Chloride 97 mmol/L (98-107); Estimated Glomerular Filt Rate > 60.0 mL/min (>60); Glucose 99 mg/dL (80-110); HEMOLYSIS < 15 (0-50); Potassium 3.6 mmol/L (3.4-5.1); Sodium 128 mmol/L (137-145)
[2018-10-18 20:22] LABS: Carbon Dioxide 26 mmol/L (22-32)
[2018-10-18] MEDS: LORazepam 0.5 MG TABLET PO (21:57)
[2018-10-19] VITALS (9 sets, daily range): BP systolic 119–150; BP diastolic 58–86; PULSE 64–92; RESP 17–21; TEMP 36.2–37.1; O2SAT 95–97
[2018-10-19] MEDS: PIPERACILLIN-TAZO 4.5 GM/100 ML FROZ.PIGGY IV ×3 (02:46→16:16)
[2018-10-19] MEDS: HYDROMORPHONE 0.5 MG INJ IV (03:29)
[2018-10-19] MEDS: SODIUM CHLORIDE 0.9% 1,000 ML 150 ML IV (03:30)
[2018-10-19] MEDS: DEXTROSE 5%-0.9% NS 1,000 ML 100 ML IV (06:52)
[2018-10-19 06:53] LABS: Add Manual Diff / Slide Review NO; Basophils Absolute Auto 0 /uL (0-100); Basophils Percent Auto 0.4 % (0-2); Eosinophils Absolute Auto 100 /uL (0-450); Eosinophils Percent Auto 1.1 % (2-4); Hematocrit 32.9 % (41-53); Hemoglobin 11.4 g/dL (13.5-17.5); Lymphocytes Absolute Auto 800 /uL (1100-4500); Lymphocytes Percent Auto 8.9 % (25-40); Mean Corpuscular HGB Conc 34.6 % (30-36); Mean Corpuscular Hemoglobin 31.8 PG (26-34); Monocytes Absolute Auto 900 /uL (0-900); Monocytes Percent Auto 10.2 % (3-14); Neutrophils Absolute Auto 7100 /uL (1500-7000); Neutrophils Percent Auto 79.4 % (50-75); Platelet Count 183 X10^3/uL (150-400); Red Blood Cell Count 3.58 X10^6/uL (4.5-5.9); Red Cell Distribution Width 13.2 % (11.6-14.8)
--- NOTE | 2018-10-19 07:05 | PC.NURSE ---
NOC Shift: Pt AAOx3, pleasant, cooperative. VSS, SBP stable off Levophed support. SR 1 AVB on tele. Afebrile. Remains NPO, pt states he is hungry wants to know when he can eat. Discussed reasons for NPO status and suggested speaking to surgeon today. Chris removed this AM per pt request and FLAMER SEALER order. Up to chair w/standby assist. No issues. IVF's changed to D5NS for low CBG's.
[2018-10-19 07:08] LABS: Alanine Aminotransferase 259 IU/L (21-72); Albumin 2.6 g/dL (3.5-5.0); Albumin Globulin Ratio 0.9 (1.0-2.8); Alkaline Phosphatase 155 U/L (38-126); Aspartate Aminotransferase 119 IU/L (17-59); BUN Creatinine Ratio 22.2 (6-22); Bilirubin Total 1.3 mg/dL (0.2-1.3); Blood Urea Nitrogen 20 mg/dL (9-20); Calcium 7.7 mg/dL (8.4-10.2); Carbon Dioxide 26 mmol/L (22-32); Chloride 97 mmol/L (98-107); Estimated Glomerular Filt Rate > 60.0 mL/min (>60); Globulin 2.8 g/dL (1.7-4.1); Glucose 81 mg/dL (80-110); HEMOLYSIS < 15 (0-50); Potassium 3.7 mmol/L (3.4-5.1); Sodium 129 mmol/L (137-145); Total Protein 5.4 g/dL (6.3-8.2)
[2018-10-19 07:51] LABS: Lipase 8171 U/L (23-300)
[2018-10-19] MEDS: HEPARIN 5,000 UNIT/ML VIAL 5000 UNIT SUBCUT ×2 (08:23→23:02)
[2018-10-19] MEDS: ROSUVASTATIN 10 MG TABLET PO (08:23)
--- NOTE | 2018-10-19 08:29 | PM.PN.1 ---
Subjective Subjective Date Patient Seen: 10/19/18 Interval history: Ari Farrar is a 68-year-old male patient with history significant for hypertension, hyperlipidemia, myocardial infarction in 2007 status post stenting prior kidney stones who presented to the ED from his PCP's office complaining abdominal pain and syncope and found to have acute cholecystitis with pancreatitis presumed related to gallstone no longer evident with elevated LFTs and lipase. The patient is resting in bed comfortably. He has mild epigastric and right upper quadrant abdominal pain that is resolving and well controlled with IV Dilaudid. He has no other complaints and denies headache, shortness of breath, chest pain, nausea, vomiting, fever, chills, dysuria, diarrhea or constipation. He is voiding via valverde catheter. He has not had a bowel movement since admission but denies constipation. His most recent bowel movement was small hard stool described as юлия. Scheduled daily suppositories until having regular BMs. Exam Vital Signs (past 8 hours): - 10/19/18 16:00 10/19/18 19:51 Temperature 97.2 F L 97.9 F Pulse Rate 64 72 Respiratory Rate 20 18 Blood Pressure 125/70 141/86 H Pulse Oximetry 97 Oxygen Delivery Method Room Air Oxygen Flow Rate 0 Narrative Exam Narrative: General: Older gentleman lying in bed and in no acute distress, well-developed, well-nourished, appropriately interactive. HEENT: Normocephalic, atraumatic. External ears without defect. Pupils equal, round, and reactive to light. Anicteric sclerae, moist conjunctivae, and no lid lag. Neck: Supple with full range of motion. No jugular venous distension. No lymphadenopathy or thyromegaly. Cardiovascular: Regular rate and rhythm without murmurs, rubs, or gallops appreciated Pulmonary: Clear to auscultation bilaterally without crackles, wheezes, or rhonchi. Normal respiratory effort with no use of accessory muscles. Abdomen: Mild firmness, no longer tender to palpation in epigastrum or RUQ, mild distention. No hepatosplenomegaly or masses appreciated. Extremities: No clubbing, cyanosis, or edema. Skin: Normal temperature, turgor, and texture; no rash, ulcers, or subcutaneous nodules appreciated. Mild jaundice. Neurological: Cranial nerves grossly intact. Psychiatric: Normal mood and affect. Appears alert and oriented to person, place, and time. Objective Labs Result Diagrams: 10/19/18 06:20 10/19/18 06:20 Labs: Laboratory Results - last 24 hr 10/19/18 10/19/18 10/19/18 06:20 06:20 06:20 WBC 9.0 RBC 3.58 L Hgb 11.4 L Hct 32.9 L MCV 92.0 MCH 31.8 MCHC 34.6 RDW 13.2 Plt Count 183 Neut % (Auto) 79.4 H Lymph % (Auto) 8.9 L [place] % (Auto) 10.2 Eos % (Auto) 1.1 L Baso % (Auto) 0.4 Neut # (Auto) 7100 H Lymph # (Auto) 800 L [place] # (Auto) 900 Eos # (Auto) 100 Baso # (Auto) 0 Sodium 129 L Potassium 3.7 Chloride 97 L Carbon Dioxide 26 BUN 20 Creatinine 0.90 Estimated GFR > 60.0 BUN/Creatinine Ratio 22.2 H Glucose 81 Calcium 7.7 L Total Bilirubin 1.3 AST 119 H ALT 259 H Alkaline Phosphatase 155 H Total Protein 5.4 L Albumin 2.6 L Globulin 2.8 Albumin/Globulin Ratio 0.9 L Lipase Procalcitonin 7.20 H 10/19/18 06:20 WBC RBC Hgb Hct MCV MCH MCHC RDW Plt Count Neut % (Auto) Lymph % (Auto) [place] % (Auto) Eos % (Auto) Baso % (Auto) Neut # (Auto) Lymph # (Auto) [place] # (Auto) Eos # (Auto) Baso # (Auto) Sodium Potassium Chloride Carbon Dioxide BUN Creatinine Estimated GFR BUN/Creatinine Ratio Glucose Calcium Total Bilirubin AST ALT Alkaline Phosphatase Total Protein Albumin Globulin Albumin/Globulin Ratio Lipase 8171 H D Procalcitonin Assessment & Plan Assessment & Plan narrative: Ari Farrar is a 68-year-old male patient with history significant for hypertension, hyperlipidemia, myocardial infarction in 2007 status post stenting prior kidney stones who presented to the ED from his PCP's office complaining abdominal pain and syncope and found to have acute cholecystitis with pancreatitis presumed related to gallstone no longer evident with elevated LFTs and lipase. 1. Acute septic shock, present on admission. Resolved. -Sepsis criteria met including: Leukocytosis (WBC 14.5), elevated procalcitonin at 36.29, tachycardic (HR 94), end-organ damage with acute kidney injury (creatinine 1.6) and persistent hypotension (BP 74/46) and not amenable to IV fluid resuscitation requiring vasopressor support. Lactate normal 1.3. -early goal-directed therapy met including: Broad-spectrum antibiotics and IV fluid and vasopressor resuscitation. 2. Acute cholecystitis, present on admission. Active. -Abdominal ultrasound and CTA of chest abdomen pelvis both demonstrated acute cholecystitis. Abdominal ultrasound also demonstrated sludge/polyp in the gallbladder lumen, common bile duct with mild dilatation at 9.8 mm without evidence of ductal obstruction. -Initial WBC 14.5 and procalcitonin 36.29. Trending down, WBC now normal at 9.0 and procalcitonin 7.20. Continue to trend WBC and procalcitonin daily. -Received Zosyn 4.5 g x1 in the ED. Continue Zosyn 4.5 g every 6 hours. -Consulted general surgery, Dr. Nagel, who will plan to perform cholecystectomy tomorrow. 3. Acute pancreatitis, present on admission. Resolving. -Likely gallstone pancreatitis with elevation of lipase to 35,223 previously on 10/11/2018 was 65 with coinciding LFTs -initial lipase level 35,223. Trending down now 16,569. Continue to monitor lipase daily. -Continue bowel rest with NPO. -Continue IV fluid hydration with normal saline at 125 mL/hr. Continue to monitor serum sodium related to hyponatremia and monitor appropriate repletion as below. -Continue dilaudid 0.5-1 mg IV every 6 hours as needed for pain. 4. Acute hyponatremia, present on admission. Active. -Initial sodium level 120. Patient asymptomatic without evidence of confusion or generalized weakness. -Continue D5 normal saline at 150 mL/hr. Sodium level now 129. -Continue to monitor sodium level closely and replete slowly. Avoid repleting more than 8 mEq/L per in 24 hours or at risk for osmotic demyelination syndrome. 5. Acute kidney injury, present on admission. Resolved. -Secondary to hypoperfusion from septic shock as well as possibly postobstructive due to CT evident prostate enlargement with mass effect on bladder. -Baseline creatinine 1.0. Initial creatinine 1.6 and now 0.90. -Placed Valverde catheter due to possible bladder outlet obstruction due to prostate enlargement and urinary retention. Now removed Valverde and attempting voiding trial. -Continued vasopressor support as necessary and titrated off. -Continue to optimize renal perfusion and avoid nephrotoxic agents. -Continue to monitor renal function daily. 6. Hypertension, not present on admission. Stable. -Held antihypertensive medications including carvedilol 25 mg twice daily, ramipril 10 mg daily and hydrochlorothiazide 25 mg daily and will consider restarting carvedilol in the next several days depending upon BP. Of note, ramipril may cause pancreatitis and hydrochlorothiazide will worsen hyponatremia. 7. Coronary artery disease status post OH, chronic, present on admission. Presumed stable. -No complaints of chest pain. -EKG is sinus rhythm without ectopy ST elevation or indication of infarct. -Discontinued telemetry. 8. BPH, chronic, present on admission. Stable. -Started tamsulosin 0.4 mg daily. -Placed Valverde catheter due to possible bladder outlet obstruction due to prostate enlargement and urinary retention. Now removed Valverde and attempting voiding trial. 9. Probable chronic constipation, present on admission. Possibly active. -Patient reports passing flatus. -Patient has had no significant BM since admission with small hard stool described as юлия. -Ordered daily biscodyl suppository until having normal BMs in lieu of narcotics. Disposition: Patient likely to be hospitalized for several more days. Plan is to perform cholecystectomy tomorrow and patient may or may not need [facility] facility for rehabilitation once recovered. Quality VTE Deep Vein Thrombosis/Pulmonary Embolism Present on Admission: No
--- NOTE | 2018-10-19 09:06 | CM.DPC ---
DCP Cont: Checked in with patient. Introduced self and role. Patient was sitting up next to bed, alert and oriented. May be having surgery consult today. He resides with his in [place], is retired, independent. He has no concerns about going home, has good family support. P: DCP to continue to follow. Patient should be able to go home when he is medically stable. Guerline Calderon RN/Food Service Specialist
[2018-10-19] MEDS: ASPIRIN 325 MG TABLET 162.5 MG PO (09:46)
[2018-10-19] MEDS: TAMSULOSIN 0.4 MG CAPSULE PO (09:59)
[2018-10-19] MEDS: DEXTROSE 5%-0.9% NS 1,000 ML 125 ML IV ×2 (10:00→16:16)
--- NOTE | 2018-10-19 10:43 | P.PN_ITS ---
Subjective Subjective Date Patient Seen: 10/19/18 Time Patient Seen: 10:43 Interval history: No acute overnight events. No further abdominal pain. Weaned off of Levophed. No nausea emesis fever. Exam Vital Signs (past 8 hours): - 10/19/18 03:23 10/19/18 07:00 10/19/18 08:00 Temperature 98.7 F 97.2 F L Pulse Rate 76 64 Respiratory Rate 17 18 Blood Pressure 121/67 142/81 H Pulse Oximetry 97 97 97 Oxygen Delivery Method Room Air Oxygen Flow Rate 0 Narrative Exam Narrative: General-adult male no acute distress, well nourished HEENT-moist mucous membranes, no scleral icterus Chest- no labored respirations, clear to auscultation bilaterally Cardiac-regular rate and rhythm Abdomen-soft, nontender, non distended Objective Labs Result Diagrams: 10/19/18 06:20 10/19/18 06:20 Labs: Laboratory Results - last 24 hr 10/18/18 10/19/18 10/19/18 19:40 06:20 06:20 WBC 9.0 RBC 3.58 L Hgb 11.4 L Hct 32.9 L MCV 92.0 MCH 31.8 MCHC 34.6 RDW 13.2 Plt Count 183 Neut % (Auto) 79.4 H Lymph % (Auto) 8.9 L [place] % (Auto) 10.2 Eos % (Auto) 1.1 L Baso % (Auto) 0.4 Neut # (Auto) 7100 H Lymph # (Auto) 800 L [place] # (Auto) 900 Eos # (Auto) 100 Baso # (Auto) 0 Sodium 128 L Potassium 3.6 Chloride 97 L Carbon Dioxide 26 BUN 25 H Creatinine 1.00 Estimated GFR > 60.0 BUN/Creatinine Ratio 25.0 H Glucose 99 Calcium 7.7 L Total Bilirubin AST ALT Alkaline Phosphatase Total Protein Albumin Globulin Albumin/Globulin Ratio Lipase Procalcitonin 7.20 H 10/19/18 10/19/18 06:20 06:20 WBC RBC Hgb Hct MCV MCH MCHC RDW Plt Count Neut % (Auto) Lymph % (Auto) [place] % (Auto) Eos % (Auto) Baso % (Auto) Neut # (Auto) Lymph # (Auto) [place] # (Auto) Eos # (Auto) Baso # (Auto) Sodium 129 L Potassium 3.7 Chloride 97 L Carbon Dioxide 26 BUN 20 Creatinine 0.90 Estimated GFR > 60.0 BUN/Creatinine Ratio 22.2 H Glucose 81 Calcium 7.7 L Total Bilirubin 1.3 AST 119 H ALT 259 H Alkaline Phosphatase 155 H Total Protein 5.4 L Albumin 2.6 L Globulin 2.8 Albumin/Globulin Ratio 0.9 L Lipase 8171 H D Procalcitonin Assessment & Plan Assessment and plan (1) Gallstone pancreatitis: Current visit: Yes Status: Acute Assessment & Plan narrative: 68-year-old male with clinically resolving gallstone pancreatitis. Abdominal pain now absent hemodynamically stable. Labs reviewed, WBC 9, sodium 129, creatinine 0.9 total bilirubin 1.3 AST 120 ALT 260 lipase 8200. Sepsis, RAYRAY, transaminitis and pancreatitis are resolving clinically and supported by labratory data. PLAN -Clear liquid diet today until midnight then NPO with IVF. -Laparoscopic cholecystectomy Friday 10/20. Discussed the risks of surgery including bleeding, infection, need for conversion to open procedure, damage to surrounding structures, need for further procedure or operation Quality VTE Deep Vein Thrombosis/Pulmonary Embolism Present on Admission: No
--- NOTE | 2018-10-19 17:46 | PC.NURSE ---
1745 - Patient will be transferred to an acute care room upstairs. Report given to receiving nurse Audra. Patient aware of moving.
[2018-10-19] MEDS: BISACODYL 10 MG SUPP PR (23:03)
[2018-10-20] VITALS (16 sets, daily range): BP systolic 111–158; BP diastolic 59–87; PULSE 62–100; RESP 13–23; TEMP 36–37.2; O2SAT 94–98
--- NOTE | 2018-10-20 | PATH_ITS ---
[facility] Accession Number: [id number] . 01 Material submitted: . gallbladder - GALLBLADDER . 01 Clinical history: . ABD PAIN AND SYNCOPE . 02 Diagnosis: Gallbladder, Laparoscopic Cholecystectomy: Acute/gangrenous and chronic cholecystitis. [facility]/10/24/2018 . 02 Electronically signed: . Fiona Rivera MD, Pathologist NPI- [id number] . 01 Gross description: . Received in formalin, labeled gallbladder, is an opened gallbladder (length-6.2 cm, diameter-3.5 cm) with red-brown smooth shiny serosa and a patent cystic duct. No lymph nodes are identified. No calculi are present. The mucosa is brown smooth flat with multiple perforations. The wall is up to 0.3 cm thick. No nodules, masses or lesions are identified. Section code: (A1) cystic duct resection margin and two serial sections from the body; (A2) two longitudinal sections from the fundus. ([id number]) /MRV . 02 Pathologist provided ICD-10: K81.0 . 02 CPT . 101013 Performed at: 01 [facility] [address] [facility], [place], [place] [id number] MD Artur Caballero MD Phone: [phone] Performed at: 02 [facility] [address] [place], [place] [id number] MD Meredith Murdock MD Phone: [phone]
[2018-10-20] MEDS: LORazepam 1 MG TABLET PO ×2 (00:44→21:54)
[2018-10-20] MEDS: PIPERACILLIN-TAZO 4.5 GM/100 ML FROZ.PIGGY IV ×3 (00:44→17:21)
[2018-10-20] MEDS: HYDROMORPHONE 0.5 MG INJ IV (00:46)
[2018-10-20] MEDS: DEXTROSE 5%-0.9% NS 1,000 ML 125 ML IV (00:57)
--- NOTE | 2018-10-20 04:16 | PC.NURSE ---
NOC Shift: Pt AAOx3, up OOB pacing in room. States he feels gassy having just received suppository. ABD distended, BT's positive. Pt sceduled for Lap [place] at 0900 tomorrow. Pt NPO after midnight and aware. IVF's continue thru shift. Pt anxious, can't relax to go to sleep bed changed out for comfort, Ativan given for sleep along with IV Dilaudid scheduled for ABD pain. Slept well through shift after meds given.
[2018-10-20 05:17] LABS: Add Manual Diff / Slide Review NO; Basophils Absolute Auto 0 /uL (0-100); Basophils Percent Auto 0.4 % (0-2); Eosinophils Absolute Auto 100 /uL (0-450); Eosinophils Percent Auto 0.7 % (2-4); Lymphocytes Absolute Auto 900 /uL (1100-4500); Lymphocytes Percent Auto 8.9 % (25-40); Mean Corpuscular HGB Conc 35.4 % (30-36); Mean Corpuscular Hemoglobin 32.1 PG (26-34); Mean Corpuscular Volume 90.6 fL (80-100); Monocytes Absolute Auto 900 /uL (0-900); Monocytes Percent Auto 8.6 % (3-14); Neutrophils Absolute Auto 8300 /uL (1500-7000); Neutrophils Percent Auto 81.4 % (50-75); Platelet Count 223 X10^3/uL (150-400); Red Blood Cell Count 3.75 X10^6/uL (4.5-5.9); Red Cell Distribution Width 12.9 % (11.6-14.8); White Blood Cell Count 10.2 X10^3/uL (4.5-11.0)
[2018-10-20 05:27] LABS: Alanine Aminotransferase 227 IU/L (21-72); Albumin 2.8 g/dL (3.5-5.0); Alkaline Phosphatase 194 U/L (38-126); Aspartate Aminotransferase 110 IU/L (17-59); BUN Creatinine Ratio 15.7 (6-22); Bilirubin Total 1.7 mg/dL (0.2-1.3); Blood Urea Nitrogen 11 mg/dL (9-20); Calcium 7.8 mg/dL (8.4-10.2); Carbon Dioxide 27 mmol/L (22-32); Chloride 95 mmol/L (98-107); Estimated Glomerular Filt Rate > 60.0 mL/min (>60); Globulin 2.8 g/dL (1.7-4.1); Glucose 115 mg/dL (80-110); HEMOLYSIS < 15 (0-50); Potassium 3.4 mmol/L (3.4-5.1); Sodium 127 mmol/L (137-145); Total Protein 5.6 g/dL (6.3-8.2)
[2018-10-20 05:45] LABS: Lipase 8598 U/L (23-300)
--- NOTE | 2018-10-20 08:04 | SUR.OPER ---
Supine on padded OR bed, head on pillow, arms secured on padded arm boards at <90 degrees abduction, legs uncrossed, safety belt at thigh, tape over blanket over lower legs.
--- NOTE | 2018-10-20 08:29 | PC.NURSE ---
Patient picked up by surgical team at this time. Patient states he has not had anything to eat or drink overnight. scheduled zosyn sent with OR nurse to hang (due at 9am). Patient's arrived to bedside and is holding his cell phone, glasses and earbuds while in surgery.
--- NOTE | 2018-10-20 08:45 | PM.PREOP ---
Pre-operative Note Interval Note History & Physical reviewed/Exam performed by Physician: Yes Changes to H&P: No
[2018-10-20] MEDS: LACTATED RINGERS 1,000 ML 42 ML IV (08:50)
[2018-10-20] MEDS: BUPIVACAINE 0.5% (PF) VIAL 30 ML INJ (09:58)
--- NOTE | 2018-10-20 11:30 | PM.OP.1 ---
Operative Date/Time/Diagnoses Date of procedure: 10/20/18 Time of procedure: 11:30 Pre-op diagnosis: gallstone pancreatitis Post-op diagnosis: same Procedure & Clinicians Procedure: laparoscopic cholecystectomy Same procedure as scheduled: Yes Indications: 60-year-old male who presented with gallstone pancreatitis. He has been admitted to the hospital for the past 3 days and has for resolution of his abdominal pain and his down trending transaminitis and pancreatitis. He was brought to the operating room for laparoscopic cholecystectomy following a discussion of the risks including bleeding infection conversion to open procedure need for further procedure, damage to surrounding structures. Surgeon: Andrea Nagel Click Yes if Unassisted: Yes Anesthesia Type: General Operative Notes Findings: significant gallbladder inflamation consistent with chronic cholecystitis Specimen(s): other (gallbladder) Estimated Blood Loss (mL): 20 Procedure in detail: The patient was brought to the operating room placed supine on the table. Bilateral lower extremity compression devices were applied. General anesthesia was induced and he was intubated with LMA. He received Zosyn prior to skin incision. A time-out was performed to ensure the correct patient procedure necessary equipment within the operating room. He was prepped and draped in the usual sterile fashion. Infraumbilical incision was made the umbilical stalk was grasped and elevated and the fascia was sharply incised. The abdomen was entered atraumatically. A 10 mm trocar was then placed into the abdomen. Pneumoperitoneum was established. The laparoscopic camera was inserted into the abdomen inspection was made that demonstrated no evidence of injury upon entry. Then placed our working ports the 1st 5 mm port high in the epigastrium and then 2 in the right upper quadrant. The gallbladder was grasped and retracted over the liver and grasped laterally by the fundus. The gallbladder was significantly inflammed consistent with chronic colecystectitis and a spinal needle was used to decompress the gallbladder. The triangle of Calot was exposed. The triangle of calot was then skeletonized using hook electrocautery and demonstrated the cystic duct clearly entering the gallbladder the cystic artery and the liver and in the background. With the critical view of safety established the cystic duct was clipped twice proximally and once distally and then sharply divided and the cystic artery was taken in the same fashion. Next the gallbladder was removed from the liver bed using electric cautery. The liver bed was then inspected for hemostasis and this was achieved. The abdomen was irrigated with sterile saline and inspection was made that showed the clips in good position. The specimen was removed using Endo-Catch. The abdomen was desufflated. The the fascia of the umbilicus was closed with 0 Vicryl in a [id number] fashion. Skin incisions were irrigated and closed with 4-0 Monocryl. The wounds were sealed with Dermabond. Patient emerged from general anesthesia was extubated and transferred to the postoperative care unit missed stable condition. The sponge and instrument count at the end of the operation was correct. Complications: none Post-operative Condition: stable Disposition: PACU
--- NOTE | 2018-10-20 11:52 | SUR.PHASEI ---
cristiane Hernández RN IV fluids LR at start of surgical case.
--- NOTE | 2018-10-20 12:07 | SUR.PHASEI ---
pt transported to acute care floor in stable condition. pt alert and talking to RN during transport. Bedside report given to DOUGLAS Moran upon arrival. Surgical sites observed to be c/d/i. Transferred care of pt to DOUGLAS Moran at that time.
--- NOTE | 2018-10-20 16:11 | P.PN_ITS ---
Subjective Subjective Date Patient Seen: 10/20/18 Time Patient Seen: 15:00 Interval history: Ari Farrar is a 68-year-old male patient with history significant for hypertension, hyperlipidemia, myocardial infarction in 2006 status post stenting prior kidney stones who presented to the ED from his PCP's office complaining abdominal pain and syncope and found to have acute cholecystitis with pancreatitis presumed related to gallstone no longer evident with elevated LFTs and lipase. Today he went for a laparoscopic cholecystectomy, and continues to do well. He has minimal pain around his incisions and feels much improved today. He denies any fevers, chills, nausea, or vomiting. Exam Vital Signs (past 8 hours): - 10/20/18 08:15 10/20/18 11:18 10/20/18 11:23 Temperature 98.2 F 98.1 F Pulse Rate 62 68 64 Respiratory Rate 19 17 16 Blood Pressure 145/83 H 126/63 123/76 Pulse Oximetry 97 95 95 10/20/18 11:28 10/20/18 11:33 10/20/18 11:38 Temperature 96.8 F L Pulse Rate 67 63 62 Respiratory Rate 17 16 13 Blood Pressure 127/73 136/76 111/59 L Pulse Oximetry 96 95 94 10/20/18 11:48 10/20/18 12:00 10/20/18 12:30 Temperature 97.9 F 97.7 F 97.8 F Pulse Rate 64 62 67 Respiratory Rate 19 14 15 Blood Pressure 141/79 H 158/80 H 144/79 H Pulse Oximetry 95 96 94 10/20/18 13:00 10/20/18 14:00 10/20/18 15:00 Temperature 98.5 F 98.7 F 98.2 F Pulse Rate 67 77 82 Respiratory Rate 23 20 21 Blood Pressure 143/85 H 148/87 H 148/78 H Pulse Oximetry 96 94 95 Oxygen Delivery Method Room Air Oxygen Flow Rate 0 Narrative Exam Narrative: GENERAL APPEARANCE: Well developed, well nourished, in no acute distress. SKIN: Inspection of the skin reveals no rashes, ulcerations or petechiae. HEENT: The sclerae were anicteric and conjunctivae were pink and moist. Extraocular movements were intact and pupils were equal, round with normal accommodation. External inspection of the ears and nose showed no scars, lesions, or masses. Lips, teeth, and gums showed normal mucosa. The oral mucosa, hard and soft palate, tongue and posterior pharynx were unremarkable. NECK: Supple and symmetric. There was no thyroid enlargement, and no tenderness, or masses were felt. CHEST: Normal AP diameter and normal contour without any kyphoscoliosis. LUNGS: Auscultation of the lungs revealed no wheezes, rhonchi, or rales. CARDIOVASCULAR: There was a regular rate and rhythm without any murmurs, gallops, rubs. Peripheral pulses were 2+ and symmetric. ABDOMEN: Soft and appropriately tender with normal bowel sounds. No ascites was noted. Incisional sites C/D/I. MUSCULOSKELETAL: There was no tenderness or effusions noted. Muscle strength and tone were normal. EXTREMITIES: No cyanosis, clubbing or edema. NEUROLOGIC: Alert and oriented x 3. Normal affect. Gait was normal. Strength is +5/5 in the Upper Extremities and Lower Extremities Bilaterally. Sensation to touch was normal. Objective Labs Result Diagrams: 10/20/18 05:00 10/20/18 05:00 Labs: Laboratory Results - last 24 hr 10/20/18 10/20/18 10/20/18 05:00 05:00 05:00 WBC 10.2 RBC 3.75 L Hgb 12.0 L Hct 34.0 L MCV 90.6 MCH 32.1 MCHC 35.4 RDW 12.9 Plt Count 223 Neut % (Auto) 81.4 H Lymph % (Auto) 8.9 L [place] % (Auto) 8.6 Eos % (Auto) 0.7 L Baso % (Auto) 0.4 Neut # (Auto) 8300 H Lymph # (Auto) 900 L [place] # (Auto) 900 Eos # (Auto) 100 Baso # (Auto) 0 Sodium 127 L Potassium 3.4 Chloride 95 L Carbon Dioxide 27 BUN 11 Creatinine 0.70 Estimated GFR > 60.0 BUN/Creatinine Ratio 15.7 Glucose 115 H Calcium 7.8 L Total Bilirubin 1.7 H AST 110 H ALT 227 H Alkaline Phosphatase 194 H Total Protein 5.6 L Albumin 2.8 L Globulin 2.8 Albumin/Globulin Ratio 1.0 Lipase 8598 H Procalcitonin 3.90 H Assessment & Plan Assessment & Plan narrative: Ari Farrar is a 68-year-old male patient with history significant for hypertension, hyperlipidemia, myocardial infarction in 2006 status post stenting prior kidney stones who presented to the ED from his PCP's office complaining abdominal pain and syncope and found to have acute cholecystitis with pancreatitis presumed related to gallstone no longer evident with elevated LFTs and lipase. 1. Acute septic shock, present on admission. Resolved. -Sepsis criteria met including: Leukocytosis (WBC 14.5), elevated procalcitonin at 36.29, tachycardic (HR 94), end-organ damage with acute kidney injury (creatinine 1.6) and persistent hypotension (BP 74/46) and not amenable to IV fluid resuscitation requiring vasopressor support. Lactate normal 1.3. -early goal-directed therapy met including: Broad-spectrum antibiotics and IV fluid and vasopressor resuscitation. 2. Acute cholecystitis, present on admission. Active. -Abdominal ultrasound and CTA of chest abdomen pelvis both demonstrated acute cholecystitis. Abdominal ultrasound also demonstrated sludge/polyp in the gallbladder lumen, common bile duct with mild dilatation at 9.8 mm without evidence of ductal obstruction. -Initial WBC 14.5 and procalcitonin 36.29. Trending down, WBC now normal at 9.0 and procalcitonin 7.20. Continue to trend WBC and procalcitonin daily. -Received Zosyn 4.5 g x1 in the ED. Continue Zosyn 4.5 g every 6 hours. -Consulted general surgery, Dr. Nagel, and patient is now s/p laparoscopic cholecystectomy today. 3. Acute pancreatitis, present on admission. Resolving. -Likely gallstone pancreatitis with elevation of lipase to 35,223 previously on 10/11/2018 was 65 with coinciding LFTs -initial lipase level 35,223. -patient now wth minimal abdominal pain, will advance diet as tolerated. 4. Acute hyponatremia, present on admission. Active. -Initial sodium level 120. Patient asymptomatic without evidence of confusion or generalized weakness. -Continue D5 normal saline at 150 mL/hr. Sodium level now 127. -Continue to monitor sodium level closely and replete slowly. -possibly exacerbated by HCTZ. 5. Acute kidney injury, present on admission. Resolved. -Secondary to hypoperfusion from septic shock as well as possibly postobstructive due to CT evident prostate enlargement with mass effect on bladder. -Baseline creatinine 1.0. Initial creatinine 1.6 and now 0.90. -Placed Perez catheter due to possible bladder outlet obstruction due to prostate enlargement and urinary retention. Now removed Perez and patient is voiding. -Continue to optimize renal perfusion and avoid nephrotoxic agents. -Continue to monitor renal function daily. 6. Hypertension, not present on admission. Stable. -Held antihypertensive medications including carvedilol 25 mg twice daily, ramipril 10 mg daily and hydrochlorothiazide 25 mg daily and will consider restarting carvedilol in the next several days depending upon BP. Hold HCTZ given hyponatremia. - restart coreg 10/20. will resume ramipril 10 mg daily. 7. Coronary artery disease status post [place], chronic, present on admission. Presumed stable. -No complaints of chest pain. -EKG is sinus rhythm without ectopy ST elevation or indication of infarct. -Discontinued telemetry. 8. BPH, chronic, present on admission. Stable. -Started tamsulosin 0.4 mg daily. -Placed Perez catheter due to possible bladder outlet obstruction due to prostate enlargement and urinary retention. Now removed Perez and attempting voiding trial. 9. Probable chronic constipation, present on admission. Possibly active. -Patient reports passing flatus. -Patient has had no significant BM since admission with small hard stool described as юлия. -Ordered daily biscodyl suppository until having normal BMs in lieu of narcotics. Disposition: Patient now improved, once tolerating diet he can work with PT/OT and may discharge home pending recommendations. Quality VTE Deep Vein Thrombosis/Pulmonary Embolism Present on Admission: No
[2018-10-20] MEDS: CARVEDILOL 25 MG TABLET PO (21:46)
[2018-10-20] MEDS: HEPARIN 5,000 UNIT/ML VIAL 5000 UNIT SUBCUT (21:47)
[2018-10-21] MEDS: PIPERACILLIN-TAZO 4.5 GM/100 ML FROZ.PIGGY IV (00:52)
[2018-10-21 01:00] VITALS: BP 155/81; PULSE 77; RESP 18; TEMP 36.8; O2SAT 96
[2018-10-21 01:10] VITALS: O2SAT 96
[2018-10-21] MEDS: HYDROMORPHONE 0.5 MG INJ IV (01:27)
[2018-10-21 03:45] VITALS: BP 143/80; PULSE 79; RESP 18; TEMP 36.7; O2SAT 97
--- NOTE | 2018-10-21 08:28 | PM.PNPO.1 ---
Subjective Subjective Date Patient Seen: 10/21/18 Time Patient Seen: 08:29 Interval history: Doing well. Minimal abdominal pain. Tolerated regular food last night. Afebrile no acute events overnight Exam Vital Signs (past 8 hours): - 10/21/18 01:00 10/21/18 01:10 10/21/18 03:45 Temperature 98.3 F 98.0 F Pulse Rate 77 79 Respiratory Rate 18 18 Blood Pressure 155/81 H 143/80 H Pulse Oximetry 96 96 97 Oxygen Delivery Method Room Air Oxygen Flow Rate 0 Narrative Exam Narrative: General-adult male no acute distress, well nourished HEENT-moist mucous membranes, no scleral icterus Chest- no labored respirations, clear to auscultation bilaterally Abdomen-soft, appropriately tender to palpation, incisions clean dry and intact. Objective Labs Result Diagrams: 10/20/18 05:00 10/20/18 05:00 Assessment & Plan Post-op Assessment and plan (1) Gallstone pancreatitis: Postoperative Procedures: Procedures Operation Date: 10/20/18 09:00 Actual Procedures Side Surgeon p Laparoscopic Cholecystectomy Not Applicable Andrea Nagel MD Postoperative day: 1 Postoperative plan narrative: 68-year-old male postoperative day 1 status post laparoscopic cholecystectomy for gallstone pancreatitis. Doing well. Afebrile, tolerating diet, pain is adequately controlled. Appropriate for discharge. Time Spent With Patient Time with patient: 15-24 minutes Quality VTE Deep Vein Thrombosis/Pulmonary Embolism Present on Admission: No
[2018-10-21 08:40] VITALS: BP 151/91; PULSE 79; RESP 20; TEMP 36.9; O2SAT 97
[2018-10-21 08:54] VITALS: BP 151/91; PULSE 77
[2018-10-21] MEDS: CARVEDILOL 25 MG TABLET PO (08:54)
[2018-10-21] MEDS: ROSUVASTATIN 10 MG TABLET PO (08:57)
[2018-10-21] MEDS: NIACIN 500 MG TABLET 250 MG PO (08:57)
[2018-10-21] MEDS: RAMIPRIL 5 MG CAPSULE 10 MG PO (08:57)
[2018-10-21] MEDS: TAMSULOSIN 0.4 MG CAPSULE PO (08:57)
--- NOTE | 2018-10-21 09:21 | P.DS_ITS ---
History of Present Illness History of Present Illness Date Patient Seen: 10/21/18 Time Patient Seen: 08:45 Chief complaint: abd pain and syncope Narrative: As per JON Jackson Mr. Ari Farrar is a 68-year-old male patient with history significant for hypertension, hyperlipidemia, myocardial infarction in 2007 status post stenting prior kidney stones who presents to the ER complaining upper abdominal and lower chest pain and syncope while at his physician's office today. The patient reports the onset of his pain was 6 days ago starting in the mid back and was evaluated on 10/11 2018 at [facility] ER with pain described as right flank pain radiating to the abdomen. At that date was discharged with diagnosis of kidney stone. The patient was seen by Dr. Correa his PCP where he had his witnessed syncopal event. Patient was seated the time and no associated trauma. EMS was summoned the patient was found to be hypotensive blood pressure in the 70s and was transported to the emergency department. The patient reports fevers and chills at the onset of his symptoms and reports increasing pain following eating. He denies headaches nasal congestion or sore throat denies chest pain or palpitations, he has had epigastric pain and bilateral upper quadrant pain and had this had nausea intermittently without vomiting. Denies change in bowel habits or dysuria. He is independent in his ADLs. Upon arrival in the ER the patient is hypertensive with a blood pressure of 81/43 with heart rate of 87, respirations of 24 and oxygenation 94%. An ultrasound of the abdomen notes gallbladder wall thickening with a positive Mckeon sign and sludge/polyp at the gallbladder lumen. Common duct mild dilation at 9.[address] is obtained with findings of mild enlarged heart, no PE, no aneurysm thickening of the proximal jejunum consistent with enteritis, distended gallbladder with suggestion of gallbladder wall thickening and edema concerning for cholecystitis. While in the ER the patient received 3 L of normal saline and on laboratory analysis had an elevated white count of 14.5, hemoglobin 13.2, hematocrit of 37.8 and platelets 192. On chemistries noted to be markedly hyponatremic at 118 with a potassium of 3.5, BUN of 33 and creatinine 1.6 and nonfasting glucose of 114. This is compared to laboratory analysis from his prior admission where his sodium level was 134 and creatinine 1.0. The patient was also found have an elevated lipase at 35,223 and 6 days prior was 65. His liver functions reveal a total bilirubin of 3.0, AST of 661, ALT of 6 O2 and alkaline phosphatase at 205. His pros calcitonin is 36.29 and a lactic acid of 1.3. His magnesium is 2 2 and his troponin is negative at less than 0.012. The patient is is times admitted for sepsis with hyponatremia and presumably gallstone induced cholecystitis and pancreatitis. Dr. Nagel was consulted from the ER. Discharge Providers Provider Date of admission: 10/17/18 16:26 Discharge Date: 10/21/18 Primary care physician: Ari Correa MD Discharge provider: Raúl Alves DO Summary Hospital Course Discharge Diagnosis: 1. Acute septic shock, present on admission. Resolved. 2. Acute cholecystitis, present on admission. Active. 3. Acute pancreatitis, present on admission. Resolving. 4. Acute hyponatremia, present on admission. Active. 5. Acute kidney injury, present on admission. Resolved. 6. Hypertension, not present on admission. Stable. 7. Coronary artery disease status post [place], chronic, present on admission. Presumed stable. 8. BPH, chronic, present on admission. Stable. Hospital Course: Ari Farrar is a 68-year-old male patient with history significant for hypertension, hyperlipidemia, myocardial infarction in 2007 status post stenting prior kidney stones who presented to the ED from his PCP's office complaining abdominal pain and syncope and found to have acute cholecystitis with pancreatitis presumed related to gallstone disease. He underwent laparoscopic cholecystectomy on 10/20/2018 and following operation was tolerating a diet and abdominal pain has resolved, so he was discharged home. 1. Acute septic shock, present on admission. Resolved. -Sepsis criteria met including: Leukocytosis (WBC 14.5), elevated procalcitonin at 36.29, tachycardic (HR 94), end-organ damage with acute kidney injury (creatinine 1.6) and persistent hypotension (BP 74/46) and not amenable to IV fluid resuscitation requiring vasopressor support. Lactate normal 1.3. -early goal-directed therapy met including: Broad-spectrum antibiotics and IV fluid and vasopressor resuscitation. -source cholecystitis and pancreatitis. Patient underwent laparoscopic cholecystectomy on 10/20/18 and was afebrile, tolerating a diet upon discharge. 2. Acute cholecystitis, present on admission. Active. -Abdominal ultrasound and CTA of chest abdomen pelvis both demonstrated acute cholecystitis. Abdominal ultrasound also demonstrated sludge/polyp in the gallbladder lumen, common bile duct with mild dilatation at 9.8 mm without evidence of ductal obstruction. -Initial WBC 14.5 and procalcitonin 36.29. Trending down, WBC now normal. -Received Zosyn 4.5 g while inpatient, no further need for antibiotics after laparoscopic cholecystectomy. -Consulted general surgery, Dr. Nagel, and patient is now s/p laparoscopic cholecystectomy 10/20/18. 3. Acute pancreatitis, present on admission. Resolving. -Likely gallstone pancreatitis with elevation of lipase to 35,223 previously on 10/11/2018 was 65 with coinciding LFTs -initial lipase level 35,223, now improved. -will hold ramipril on discharge as this has been implicated in pancreatitis. -PMD follow up for BP. 4. Acute hyponatremia, present on admission. Active. -Initial sodium level 120. Patient asymptomatic without evidence of confusion or generalized weakness. -Sodium level now 127, asymptomatic and stable for discharge home. -possibly exacerbated by HCTZ, plan for PMD follow up and held HCTZ on discharge. 5. Acute kidney injury, present on admission. Resolved. -Secondary to hypoperfusion from septic shock as well as possibly postobstructive due to CT evident prostate enlargement with mass effect on bladder. -Baseline creatinine 1.0. Initial creatinine 1.6 and improved after treatment. 6. Hypertension, not present on admission. Stable. - hold HCTZ given hyponatremia, hold ramipril given implication in pancreatitis. - continue coreg and change to losartan 50 mg on discharge. - PMD follow up in 1 week for BP management. 7. Coronary artery disease status post [place], chronic, present on admission. Presumed stable. -No complaints of chest pain. -EKG is sinus rhythm without ectopy ST elevation or indication of infarct. -Discontinued telemetry. 8. BPH, chronic, present on admission. Stable. - continue tamsulosin 0.4 mg daily. Status at Discharge Cognitive/behavioral status at discharge: oriented Functional status at discharge: independent ambulation Overall status at discharge: patient is back to baseline Time Spent with Patient Time spent: Greater than 30 minutes Exam Vital Signs (past 8 hours): - 10/21/18 03:45 10/21/18 08:40 10/21/18 08:54 Temperature 98.0 F 98.4 F Pulse Rate 79 79 77 Respiratory Rate 18 20 Blood Pressure 143/80 H 151/91 H 151/91 H Pulse Oximetry 97 97 Oxygen Delivery Method Room Air Oxygen Flow Rate 0 Narrative Exam Narrative: GENERAL APPEARANCE: Well developed, well nourished, in no acute distress. SKIN: Inspection of the skin reveals no rashes, ulcerations or petechiae. HEENT: The sclerae were anicteric and conjunctivae were pink and moist. Extraocular movements were intact and pupils were equal, round with normal accommodation. External inspection of the ears and nose showed no scars, lesions, or masses. Lips, teeth, and gums showed normal mucosa. The oral mucosa, hard and soft palate, tongue and posterior pharynx were unremarkable. NECK: Supple and symmetric. There was no thyroid enlargement, and no tenderness, or masses were felt. CHEST: Normal AP diameter and normal contour without any kyphoscoliosis. LUNGS: Auscultation of the lungs revealed no wheezes, rhonchi, or rales. CARDIOVASCULAR: There was a regular rate and rhythm without any murmurs, gallops, rubs. Peripheral pulses were 2+ and symmetric. ABDOMEN: Soft and appropriately tender with normal bowel sounds. No ascites was noted. Incisional sites C/D/I. MUSCULOSKELETAL: There was no tenderness or effusions noted. Muscle strength and tone were normal. EXTREMITIES: No cyanosis, clubbing or edema. NEUROLOGIC: Alert and oriented x 3. Normal affect. Gait was normal. Strength is +5/5 in the Upper Extremities and Lower Extremities Bilaterally. Sensation to touch was normal. Objective Labs Result Diagrams: 10/20/18 05:00 10/20/18 05:00 Discharge Plan Discharge Plan Patient Disposition: Home Discharge comment: New admitted to the hospital for pancreatitis, and an infection in your gallbladder. Her gallbladder was removed on 10/20/2018, and you did well following the operation. You do not need any further antibiotics at home, however some of her medications were changed given the possibility that they can cause pancreatitis. Your other blood pressure medication, hydrochlorothiazide, was held because of a low sodium value. You should follow up with your primary care provider in about 1 week to check on your blood pressure and to check your sodium level. You should see the surgeons in the clinic as well for follow up from the removal of your gallbladder. Discharge Med Rec/Prescriptions Prescriptions: New losartan 50 mg tablet 50 mg PO DAILY 30 Days Qty: 30 RF: 0 Continued rosuvastatin [Crestor] 10 MG tablet 10 mg PO DAILY Qty: 0 RF: 0 carvedilol 25 mg Tablet 25 mg PO BID RF: 0 aspirin 325 mg Tablet 162.5 mg PO DAILY RF: 0 lorazepam 0.5 mg Tablet 0.5 mg PO TID PRN (Reason: Anxiety) RF: 0 niacin 500 mg Tablet 250 mg PO BID RF: 0 coenzyme Q10 [CoQ-10] 100 mg Capsule 100 mg PO DAILY RF: 0 Discontinued ramipril 10 mg Capsule 10 mg PO DAILY Qty: 0 RF: 0 hydrochlorothiazide 25 mg Tablet 25 mg PO DAILY RF: 0 Follow up/Referrals: Ari Correa MD [Primary Care Provider] - Provider Discharge Instructions Diet: Diet as Tolerated and Low-fat Activity: As tolerated, avoid heavy lifting until seen for surgical follow up. Discharge Data Primary Care Provider: Ari Correa V Quality VTE Deep Vein Thrombosis/Pulmonary Embolism Present on Admission: No
[2018-10-21 10:41] LABS: HEMOLYSIS 18 (0-50); Potassium 3.6 mmol/L (3.4-5.1)
[2018-10-21 10:43] LABS: BUN Creatinine Ratio 16.7 (6-22); Blood Urea Nitrogen 10 mg/dL (9-20); Carbon Dioxide 27 mmol/L (22-32); Chloride 94 mmol/L (98-107); Estimated Glomerular Filt Rate > 60.0 mL/min (>60); Glucose 108 mg/dL (80-110); Sodium 128 mmol/L (137-145)
--- NOTE | 2018-10-21 15:14 | CM.DPC ---
DCP: continued: case again received and EMR reviewed for last few days. See that pt was taken to OR for a lap flower 10/[address] Nagel. Both Dr. Nagel and hospitalist Dr. Alves deemed pt stable for d/c today. Went to room just to check in...room cleaned and empty. Pt had already left for home. He will be following up in clinic setting with the surgeon and with his PCP.
== END 2018-10-21 12:30 | disposition home or self-care (01) | DRG 853 ==
LOC: ED 16:24 → ICU 10-18 08:39 → AC 10-19 17:51
PROVIDERS: Internal Medicine; Nurse Practitioner Adult Health; Surgery; Admitting Provider Internal Medicine; Emergency Provider Emergency Medicine; PCP Internal Medicine; Visit Provider Internal Medicine
PROC: 0FT44ZZ Resection of Gallbladder, Percutaneous Endoscopic Approach (ICD-10-PCS; CPT 47562; principal; 2018-10-20 09:00)
DX: A41.51 Sepsis due to Escherichia coli [E. coli] (principal); K85.10 Biliary acute pancreatitis without necrosis or infection; R65.21 Severe sepsis with septic shock; N17.9 Acute kidney failure, unspecified; E87.1 Hypo-osmolality and hyponatremia; K80.12 Calculus of gallbladder with acute and chronic cholecystitis without obstruction; I10 Essential (primary) hypertension; E78.5 Hyperlipidemia, unspecified; I25.10 Atherosclerotic heart disease of native coronary artery without angina pectoris; N40.0 Benign prostatic hyperplasia without lower urinary tract symptoms
CPT/HCPCS: 36415; 36569; 36591; 36592; 36600; 71045; 71275; 74174; 76000; 76705; 80048; 80053; 80061; 81001; 82550; 82805; 82962; 83605; 83690; 83735; 84145; 84484; 85025; 86850; 86900; 86901; 87040; 87150; 87186; 87205; 87797; 93005; 93041; 94762; 96361; 96365; 99285; 99291; 99292; J1100; J1170; J1644; J2270; J2405; J2543; J2704; J3010; J3480; Q9967

== ENCOUNTER → 2018-10-30 19:05 | Outpatient (ROUT) | payer OTHER, SELFPAY ==
[2018-10-17 17:37] VITALS: BMI 29.4
[2018-10-30 19:18] LABS: Add Manual Diff / Slide Review NO; Basophils Absolute Auto 100 /uL (0-100); Basophils Percent Auto 2.8 % (0-2); Eosinophils Absolute Auto 100 /uL (0-450); Hemoglobin 13.4 g/dL (13.5-17.5); Lymphocytes Absolute Auto 1200 /uL (1100-4500); Lymphocytes Percent Auto 24.6 % (25-40); Mean Corpuscular HGB Conc 33.5 % (30-36); Mean Corpuscular Hemoglobin 31.2 PG (26-34); Monocytes Absolute Auto 500 /uL (0-900); Monocytes Percent Auto 10.8 % (3-14); Neutrophils Absolute Auto 2800 /uL (1500-7000); Neutrophils Percent Auto 59.8 % (50-75); Platelet Count 518 X10^3/uL (150-400); Red Cell Distribution Width 13.3 % (11.6-14.8); White Blood Cell Count 4.7 X10^3/uL (4.5-11.0)
[2018-10-30 19:28] LABS: Alanine Aminotransferase 102 IU/L (21-72); Albumin 3.9 g/dL (3.5-5.0); Albumin Globulin Ratio 1.3 (1.0-2.8); Alkaline Phosphatase 78 U/L (38-126); Aspartate Aminotransferase 66 IU/L (17-59); BUN Creatinine Ratio 23.8 (6-22); Bilirubin Total 0.8 mg/dL (0.2-1.3); Blood Urea Nitrogen 19 mg/dL (9-20); Calcium 9.4 mg/dL (8.4-10.2); Carbon Dioxide 24 mmol/L (22-32); Chloride 99 mmol/L (98-107); Estimated Glomerular Filt Rate > 60.0 mL/min (>60); Glucose 148 mg/dL (80-110); HEMOLYSIS 36 (0-50); Lipase 506 U/L (23-300); Potassium 4.6 mmol/L (3.4-5.1); Sodium 134 mmol/L (137-145); Total Protein 6.9 g/dL (6.3-8.2)
== END ==
PROVIDERS: PCP Internal Medicine; Visit Provider Internal Medicine
DX: K81.0 Acute cholecystitis (principal)
CPT/HCPCS: 80053; 83690; 85025

== ENCOUNTER → 2019-03-06 14:59 | Outpatient (ROUT) | payer OTHER, SELFPAY ==
[2018-10-17 17:37] VITALS: BMI 29.4
[2019-03-06 15:51] LABS: Aspartate Aminotransferase 33 IU/L (17-59); BUN Creatinine Ratio 17.8 (6-22); Blood Urea Nitrogen 16 mg/dL (9-20); Calcium 9.9 mg/dL (8.4-10.2); Carbon Dioxide 29 mmol/L (22-32); Chloride 95 mmol/L (98-107); Cholesterol 117 mg/dL (140-199); Estimated Glomerular Filt Rate > 60.0 mL/min (>60); Glucose 107 mg/dL (80-110); HDL Cholesterol 39 mg/dL (40-60); HEMOLYSIS < 15 (0-50); LDL Cholesterol Calculated 57 mg/dL (<100); Potassium 5.2 mmol/L (3.4-5.1); Sodium 133 mmol/L (137-145); Triglycerides 106 mg/dL (35-150)
[2019-03-06 16:21] LABS: Prostate Specific Antigen 1.29 ng/mL (0.10-4.00)
[2019-03-06 16:35] LABS: Hemoglobin A1C% w Est Avg Glu 5.4 % (4.0-6.0)
== END ==
PROVIDERS: PCP Internal Medicine; Visit Provider Internal Medicine
DX: I10 Essential (primary) hypertension (principal); E78.2 Mixed hyperlipidemia; N40.1 Benign prostatic hyperplasia with lower urinary tract symptoms
CPT/HCPCS: 80048; 80061; 83036; 84153; 84450

== ENCOUNTER → 2019-03-13 08:41 | Outpatient (CLI) | payer OTHER, SELFPAY ==
[2018-10-17 17:37] VITALS: BMI 29.4
--- NOTE | 2019-03-13 08:43 | DI.RAD.S_ITS ---
PROCEDURE: XR FINGER LT MIN 2V INDICATIONS: pain/swelling L ring finger after jamming TECHNIQUE: AP hand, 2 views of the fourth finger acquired. COMPARISON: None. FINDINGS: Bones: No fractures or dislocations. No suspicious bony lesions. Soft tissues: No suspicious soft tissue calcifications. IMPRESSION: No trauma found, minimal degenerative osteoarthritic change. Dictated by: Fabien Sanabria M.D. on 03/13/2019 at 9:03 Approved by: Fabien Sanabria M.D. on 03/13/2019 at 9:04
== END ==
PROVIDERS: PCP Internal Medicine; Visit Provider Physician Assistant
DX: S66.912A Strain of unspecified muscle, fascia and tendon at wrist and hand level, left hand, initial encounter (principal); M79.645 Pain in left finger(s); M79.89 Other specified soft tissue disorders; X58.XXXA Exposure to other specified factors, initial encounter
CPT/HCPCS: 73140

== ENCOUNTER → 2020-03-11 14:44 | Outpatient (ROUT) | payer OTHER, SELFPAY ==
[2018-10-17 17:37] VITALS: BMI 29.4
[2020-03-11 15:03] LABS: Add Manual Diff / Slide Review NO; Basophils Absolute Auto 0 /uL (0-100); Basophils Percent Auto 1.1 % (0-2); Eosinophils Absolute Auto 200 /uL (0-450); Eosinophils Percent Auto 5.3 % (2-4); Hematocrit 46.6 % (41-53); Lymphocytes Absolute Auto 1300 /uL (1100-4500); Lymphocytes Percent Auto 30.8 % (25-40); Mean Corpuscular HGB Conc 34.4 % (30-36); Mean Corpuscular Volume 93.2 fL (80-100); Monocytes Absolute Auto 500 /uL (0-900); Monocytes Percent Auto 12.7 % (3-14); Neutrophils Absolute Auto 2100 /uL (1500-7000); Neutrophils Percent Auto 50.1 % (50-75); Platelet Count 189 X10^3/uL (150-400); Red Cell Distribution Width 13.2 % (11.6-14.8); White Blood Cell Count 4.1 X10^3/uL (4.5-11.0)
[2020-03-11 15:16] LABS: Hemoglobin A1C% w Est Avg Glu 5.3 % (4.0-6.0)
[2020-03-11 18:03] LABS: TSH w/ Reflex to FT4 2.31 uIU/mL (0.47-4.68)
[2020-03-15 18:56] LABS: Aspartate Aminotransferase 26 IU/L (17-59); BUN Creatinine Ratio 16.7 (6-22); Blood Urea Nitrogen 14 mg/dL (9-20); Calcium 9.8 mg/dL (8.4-10.2); Carbon Dioxide 29 mmol/L (22-32); Chloride 94 mmol/L (98-107); Cholesterol 116 mg/dL (140-199); Estimated Glomerular Filt Rate > 60.0 mL/min (>60); Glucose 111 mg/dL (80-110); HDL Cholesterol 55 mg/dL (40-60); HEMOLYSIS < 15 (0-50); LDL Cholesterol Calculated 46 mg/dL (<100); Potassium 4.8 mmol/L (3.4-5.1); Sodium 129 mmol/L (137-145); Triglycerides 77 mg/dL (35-150)
[2020-03-15 19:27] LABS: Prostate Specific Antigen 1.18 ng/mL (0.10-4.00)
== END ==
PROVIDERS: PCP Internal Medicine; Visit Provider Internal Medicine
DX: R73.01 Impaired fasting glucose (principal); I25.10 Atherosclerotic heart disease of native coronary artery without angina pectoris; E78.2 Mixed hyperlipidemia; N40.1 Benign prostatic hyperplasia with lower urinary tract symptoms
CPT/HCPCS: 80048; 80061; 83036; 84153; 84443; 84450; 85025

== ENCOUNTER → 2020-03-17 12:06 | Outpatient (CLI) | payer MEDICARE, SELFPAY ==
[2018-10-17 17:37] VITALS: BMI 29.4
[2020-03-17] MEDS: COVID-19 VACC #1, MRNA(MOD) 100 MCG/0.5 ML VIAL IM (12:20)
== END ==
PROVIDERS: PCP Internal Medicine; Visit Provider Internal Medicine
DX: Z23 Encounter for immunization (principal)
CPT/HCPCS: 0011A; 91301

== ENCOUNTER → 2020-04-14 11:57 | Outpatient (CLI) | payer MEDICARE, SELFPAY ==
[2018-10-17 17:37] VITALS: BMI 29.4
[2020-04-14] MEDS: COVID-19 VACC #2, MRNA(MOD) 100 MCG/0.5 ML VIAL IM (12:03)
== END ==
PROVIDERS: PCP Internal Medicine; Visit Provider Internal Medicine
DX: Z23 Encounter for immunization (principal)
CPT/HCPCS: 0012A; 91301

== ENCOUNTER → 2020-05-03 09:11 | Outpatient (CLI) | payer OTHER, SELFPAY ==
[2018-10-17 17:37] VITALS: BMI 29.4
[2020-05-03 11:02] LABS: COVID19 -Nasal RAPID Negative (Negative)
== END ==
PROVIDERS: PCP Internal Medicine; Visit Provider Surgery
DX: Z20.822 Contact with and (suspected) exposure to COVID-19 (principal)
CPT/HCPCS: 87635; C9803

== ENCOUNTER 2020-05-04 06:14 | Day surgery (SDC) | payer OTHER, SELFPAY ==
[2018-10-17 17:37] VITALS: BMI 29.4
[2020-05-04] VITALS (12 sets, daily range): BP systolic 105–138; BP diastolic 70–84; PULSE 50–62; RESP 10–16; TEMP 36.6–36.7; O2SAT 93–99; BMI 24.8
[2020-05-04] MEDS: LACTATED RINGERS 1,000 ML 100 ML IV ×2 (07:00→09:08)
--- NOTE | 2020-05-04 07:33 | PM.HP.1 ---
History of Present Illness History of Present Illness Date Patient Seen: 05/04/20 Time Patient Seen: 07:33 Chief complaint: [facility] [place] Narrative: 69 M reducible RIH. No significant interval changes in health since last H&P Mar 2020. Patient History Medical History Heart attack (~2006) HTN (hypertension) Hyperlipidemia Kidney stones Surgical History H/O heart artery stent History of angioplasty History of cholecystectomy (~2018) History of inguinal hernia repair No pertinent past surgical history Family & Social History Family History Father Hypertension Mother Hypertension Social History: household members spouse Tobacco & Substance use: Smoking Status Never smoker alcohol intake current alcohol intake frequency a few times a week Substance Use Type does not use Meds Home Medications and Allergies Home Medications Medication Instructions Recorded Confirmed Type rosuvastatin [Crestor] 10 mg PO DAILY #0 10/17/16 05/04/20 History carvedilol 25 mg PO BID 10/17/18 05/04/20 History coenzyme Q10 [CoQ-10] 300 mg PO DAILY 10/17/18 05/04/20 History lorazepam 0.5 mg PO TID PRN 10/17/18 05/03/20 History niacin 500 mg PO DAILY 10/17/18 05/04/20 History ashwagandha root extract 300 mg 500 mg PO DAILY PRN 03/24/20 05/04/20 History capsule aspirin 81 mg tablet,delayed 81 mg PO DAILY 03/24/20 05/04/20 History release ramipril 10 mg capsule 10 mg PO DAILY 03/24/20 05/04/20 History Allergies Allergy/AdvReac Type Severity Reaction Status Date / Time succinylcholine AdvReac Severe Cramping Verified 05/04/20 07:23 of the Muscles Review of Systems Review of Systems ROS: Yes All systems reviewed with the patient and are negative except as otherwise documented Exam Vital Signs (past 8 hours): - 05/04/20 07:09 Temperature 98.0 F Pulse Rate 62 Respiratory Rate 16 Blood Pressure 138/84 Pulse Oximetry 98 Oxygen Delivery Method Room Air Oxygen Flow Rate 0 Narrative Exam Narrative: General-no acute distress, well nourished adult male HEENT-moist mucous membranes, no scleral icterus Neck-supple, no lymphadenopathy Chest- non labored respirations, clear to auscultation bilaterally Cardiac-regular rate no peripheral edema Abdomen-soft, nontender, non distended Extremities-warm, well perfused Neurological-alert and oriented, no focal deficits Assessment & Plan Assessment & Plan narrative: 69M reducible [facility]. Will proceed with open right inguinal hernia repair with mesh. Questions have been answered.
[2020-05-04] MEDS: CEFAZOLIN 2 GM/100 ML FROZ.PIGGY IV (07:56)
--- NOTE | 2020-05-04 08:09 | SUR.OPER ---
Supine on padded OR bed, head on pillow, arms secured on padded arm boards at <90 degrees abduction, legs uncrossed, safety belt at thigh, tape over blanket over lower legs. Gel pad under heels.
[2020-05-04] MEDS: BUPIVACAINE 0.5% W/ EPI (PF) 30 ML VIAL INJ (08:16)
--- NOTE | 2020-05-04 09:31 | P.OP_ITS ---
Operative Date/Time/Diagnoses Date of procedure: 05/04/20 Time of procedure: 09:31 Pre-op diagnosis: Reducible right inguinal hernia Post-op diagnosis: same Procedure & Clinicians Procedure: Open right inguinal hernia repair Same procedure as scheduled: Yes Indications: 69-year-old male symptomatic reducible right inguinal hernia Surgeon: Andrea Nagel Anesthesia Type: General Operative Notes Findings: Large indirect hernia and small floor defect Specimen(s): none sent Estimated Blood Loss (mL): 50 Procedure in detail: The patient was placed supine on the table and bilateral lower extremity compression devices were applied. Anesthesia was induced they were intubated with an LMA and received 2g of Ancef. A time-out was performed. They were prepped and draped in sterile fashion. The right external inguinal ring and the anterior superior iliac crest were identified and marked. 1 finger breath above the inguinal ligament the skin was infiltrated with 0.25% bupivacaine. The skin incision was made here and the subcutaneous tissues were divided with electrocautery exposing the external oblique aponeurosis which was then opened along the direction of its fibers. Using blunt dissection the internal oblique aporneurosis was from the external oblique upper leaflet to identify the iliohypogastric nerve. Using a kittner the cord was carefully dissected away from the inguinal canal adjacent to the pubic tubercle. The cord including the vas deferens, testicular bloody supply, ilioguinal and genital nerve were encircled with a Jaclyn drain. A small direct floor defect was identified and it was reduced into the abdomen and the internal oblique aporneuorsis was approximated to the inguinal ligament with Ethibond suture to reapproximate the floor. The cremasteric fibers surrounding the cord were divided using electrocautery adjacent to the internal ring.. The vas deferens and the testicular vessels were preserved and protected. There was large indirect hernia on the anterior medial aspect of the cord which was skeletonized away from the vas deferens and testicular blood supply. The indirect hernia was skeletonized back to the internal ring given its large size it was opened carefully then ligated at its base with vicryl suture and excised. The remnant reduced spontaneously into the abdomen. I selected a 7x 15 cm lightweight Pro Loop hernia mesh. The inferior medial aspect of the mesh was anchored to insertion of the rectus muscle to the pubic tubercle such that there was jenn roximately 2 cm of tubercle overlap with Ethibond and then was run continuously along the inferior edge of the mesh to the shelving edge of the inguinal ligament. Interrupted 3 0 Vicryl suture was used to anchor the superior aspect of the mesh to the conjoined tendon in several places. The tails were then reapproximated loosely around the spermatic cord. The tails of the mesh were then tucked under the external oblique aponeurosis. The repair was checked for hemostasis. The wound was irrigated with sterile saline. The external oblique aponeurosis was reapproximated in a running fashion using 3 0 Vicryl. The subcutaneous tissues were reapproximated with 3 0 Vicryl skin closed with 4 0 Monocryl followed by the application of Dermabond. At the end of the operation I ensured that both testicles were within the scrotum. The sponge instrument count at the end operation was correct. The patient emerged from anesthesia was extubated and transferred to the postoperative care unit in stable condition. A total of 30 ml of of 0.25% bupivicaine was used to infiltrate the skin. Complications: none Post-operative Condition: stable Disposition: same day surgery
[2020-05-04] MEDS: ACETAMINOPHEN 325 MG TABLET 650 MG PO (10:11)
[2020-05-04] MEDS: OXYCODONE IR 5 MG TABLET PO (10:32)
== END 2020-05-04 10:37 | disposition home or self-care (01) ==
PROVIDERS: PCP Internal Medicine; Referring Provider Surgery; Visit Provider Surgery
PROC: (CPT 49505; principal; 2020-05-04 07:45)
DX: K40.90 Unilateral inguinal hernia, without obstruction or gangrene, not specified as recurrent (principal); I25.2 Old myocardial infarction; I10 Essential (primary) hypertension; E78.5 Hyperlipidemia, unspecified
CPT/HCPCS: 49505; 82962; C1781; J0690; J1100; J1885; J2405; J2704; J3010